=== PATIENT | male | born 1975 | race Caucasian/White ===

== ENCOUNTER 2024-09-21 22:26 | Inpatient (IN) | payer BC ==
[~2024-09-21] VITALS: Ht 185.4 cm; Wt 170.8 kg
--- NOTE | 2024-09-21 23:07 | ERN ---
General Chief Complaint: Abdominal Pain Stated Complaint: C/O RUQ PAIN RADIATING TO BACK X 5 HRS Time Seen by MD: 22:37 History of Present Illness Initial Comments Mr. Beverly is a 49-year-old male with significant past medical history of seizures who comes in today with a right upper quadrant abdominal pain radiating posteriorly to his back. Patient reports the pain began approximately began 5-6 hours prior to arrival and began occurring intermittently over the last few weeks for unspecified duration. The pain is described as sharp, rated a 7-1/2 to 8/10. Patient states that the pain is exacerbated by inspiration. He denies fever, nausea, vomiting jaundice change in bowel movements Allergies: Coded Allergies: No Known Allergies (Unverified Allergy, Unknown, 09/21/24) Past Medical History Past Medical History: Seizure Medical History Other: HX OF EPILEPSY Past Surgical History: None ROS Dictation Constitutional: Negative for fever,chills, and weight loss Eyes: Negative for injury, pain,redness, and discharge ENT: Negative for injury,pain or swelling Cardiovascular: Negative for chest pain, palpitations, and edema Respiratory: Negative for shortness of breath, cough, and wheezing, Abdomen/GI: Positive for right upper quadrant back pain Back: Negative for injury and pain : Negative for injury, bleeding and discharge MS/Extremity: Negative for injury and deformity Skin: Negative for rash, and discoloration Neuro: Negative for headache, weakness, numbness, tingling, and seizure Psych: Negative for suicide ideation, homicidal ideation, and hallucinations Physical Exam Physical Exam Dictation General: awake, alert, NAD Head/Face: Normocephalic, atraumatic Eyes: PERRL, EOMI, vision at baseline ENT: oral cavity clear, TMs clear, no signs of infection Neck: Trachea midline, supple, no nuchal rigidity Cardiovascular: RRR, normal S1/S2, No MRGs, no JVD Respiratory: CTAB, no respiratory distress, No rales or wheezes Abdomen: Pain with palpation in the right upper quadrant Skin: Warm, dry, normal turgor, no rash MS/Extremity: Pulses equal, no cyanosis, neurovascular intact, FROM Neuro: COAx4, GCS 15, strength 5/5, CN 2-12 intact, normal cerebellar exam, normal gait, Psych: Normal behavior, mood, and affect normal Results Laboratory and Microbiology Lab and Micro Result Laboratory Tests Test 09/21/24 23:03 White Blood Count 6.7 K/uL (4.8-10.8) Red Blood Count 4.85 MIL/uL (4.50-6.20) Hemoglobin 15.3 g/dL (14.0-18.0) Hematocrit 45.3 % (42-54) Mean Corpuscular Volume 93.4 fL (79-99) Mean Corpuscular Hemoglobin 31.5 pg (27.0-33.0) Mean Corpuscular Hemoglobin Concent 33.8 g/dL (32.0-36.0) Red Cell Distribution Width 13.4 % (11.0-15.5) Platelet Count 142 K/uL (130-400) Mean Platelet Volume 12.2 fL (7.5-10.5) H Immature Granulocyte % (Auto) 0.7 % (0-1) Neutrophils (%) (Auto) 66.7 % (40.0-77.0) Lymphocytes (%) (Auto) 20.5 % (21.0-51.0) L Monocytes (%) (Auto) 7.3 % (3.0-13.0) Eosinophils (%) (Auto) 4.5 % (0.0-8.0) Basophils (%) (Auto) 0.3 % (0.0-5.0) Neutrophils # (Auto) 4.5 K/uL (1.8-7.7) Lymphocytes # (Auto) 1.4 K/uL (1.0-4.8) Monocytes # (Auto) 0.5 K/uL (0.1-1.0) Eosinophils # (Auto) 0.30 K/uL (0.00-0.70) Basophils # (Auto) 0.02 K/uL (0.00-0.20) Absolute Immature Granulocyte (auto 0.05 K/uL (0-1) Nucleated Red Blood Cells 0.0 % (0.0-0.19) Sodium Level 141 mmol/L (136-145) Potassium Level 4.7 mmol/L (3.5-5.1) Chloride Level 106 mmol/L (101-111) Carbon Dioxide Level 28 mmol/L (21-32) Blood Urea Nitrogen 22 mg/dL (7-18) H Creatinine 1.1 mg/dL (0.5-1.3) Glomerular Filtration Rate Calc 82 mL/min (>90) Random Glucose 94 mg/dL (70-105) Total Calcium 8.7 mg/dL (8.5-10.1) Total Bilirubin 0.5 mg/dL (0.2-1.0) Aspartate Amino Transf (AST/SGOT) 26 U/L (10-37) Alanine Aminotransferase (ALT/SGPT) 24 U/L (12-78) Alkaline Phosphatase 71 U/L (50-136) Total Creatine Kinase 115 U/L (21-232) Total Protein 6.7 g/dL (6.0-8.3) Albumin 3.4 g/dL (3.5-5.0) L Amylase Level 30 U/L (25-115) Lipase 36 U/L (16-77) MDM Patient's ultrasound shows acute cholecystitis. General surgery has been consulted and recommends admission. We will admit to hospitalist. MDM: Differential diagnosis: Acute cholecystitis Rationale: Tests considered and ordered secondary to shared decision making include: labs, ECG and radiology Previous outside records reviewed: Old ER visits. Risk of complication and/or morbidity or mortality of patient management: None Medications-Per medication reconciliation Need for hospitalization: Patient does meet criteria for hospitalization. Need for emergency major/minor surgery: No There are no social concerns with this patient. Prescription drug management Prescriptions will include symptomatic care Patient's prior external medical records from other ER visits were reviewed by me as indicated. Prior testing and results from previous visits were reviewed. Prior tests were taken into account with medical decision making and resource utilization, independent historian/historians were used to obtain complete medical history. I independently interpreted the test that were performed, results were reviewed by me and considered findings on radiology if ordered. Medical management and examination interpretation discussions were had by me with other qualified healthcare professionals as indicated for the patient's care. ED Course Orders Procedure Category Date Status Time Cbc With Differential LAB 09/21/24 Complete 23:02 Comprehensive LAB 09/21/24 Complete Metabolic Panel 23:02 Amylase LAB 09/21/24 Complete 23:02 Urinalysis Profile LAB 09/21/24 Logged 23:02 Us Abdominal Ruq\Ltd US 09/21/24 Resulted 23:02 Lactated Ringers PHA 09/21/24 Complete 1000ml (Lactated 23:30 Morphine 4mg Syg PHA 09/21/24 Complete (Morphine 4mg Syg) 23:30 Ondansetron 4mg Inj PHA 09/21/24 Complete (Zofran 4mg Inj) 23:30 Lidocaine Hcl 2% PHA 09/21/24 Complete Viscous (Lidocaine Hcl 23:30 Mag/Alum/Simeth 30ml PHA 09/21/24 Complete (Maalox Plus 30ml) 23:30 Dicyclomine Hcl PHA 09/21/24 Complete (Bentyl 10mg/5ml 23:30 Creatine Kinase, Total LAB 09/21/24 Complete 23:02 Chest 1vw RAD 09/21/24 Resulted 23:02 Lipase LAB 09/21/24 Complete 23:02 Zosyn 3.375gm+Ns 50ml PHA 09/22/24 Complete (Zosyn 3.375gm+Ns 01:00 Current Medications Medications (Trade) Dose Ordered Sig/Padmini Route PRN Reason Start Time Stop Time Status Last Admin Dose Admin Al Hydroxide/Mg Hydroxide (MAALox PLUS 30ML) 30 ml ONCE ONCE PO 09/21/24 23:30 09/21/24 23:31 DC 09/21/24 23:18 Dicyclomine HCl (Bentyl 10mg/5ml Syrup) 10 mg ONCE ONCE PO 09/21/24 23:30 09/21/24 23:31 DC 09/21/24 23:19 Lactated Ringer's 1,000 ml @ 0 mls/hr ONCE ONCE IV 09/21/24 23:30 09/21/24 23:31 DC 09/21/24 23:18 Lidocaine HCl (Lidocaine HCl 2% Viscous) 10 ml ONCE ONCE PO 09/21/24 23:30 09/21/24 23:31 DC 09/21/24 23:19 Morphine Sulfate (morPHINE 4MG SYG) 4 mg ONCE ONCE IVP 09/21/24 23:30 09/21/24 23:31 DC 09/21/24 23:19 Ondansetron HCl (zoFRAN 4MG INJ) 4 mg ONCE ONCE IVP 09/21/24 23:30 09/21/24 23:31 DC 09/21/24 23:19 Piperacillin Sod/ Tazobactam Sod (Zosyn 3.375gm+NS 50ml) 3.375 gm ONCE ONCE IV 09/22/24 01:00 09/22/24 01:01 DC 09/22/24 01:04 Vital Signs Date Time Temp Pulse Resp B/P (MAP) Pulse Ox O2 Delivery O2 Flow Rate FiO2 09/21/24 23:08 98.4 56 18 135/65 99 Room Air* 0 21 09/21/24 22:28 98.4 53 20 158/81 98 Room Air DX & DISP Disposition: Inpatient Departure Impression: Primary Impression: Acute cholecystitis Critical Time: 30 minutes Condition: Stable Referrals: SELF,REFERRAL (PCP) LAKISHA MERAZ MD Sep 21, 2024 23:07
[2024-09-21] MEDS: MAG/ALUM/SIMETH 30 ML UDCUP PO ONE (23:18)
[2024-09-21] MEDS: LACTATED RINGERS 1000ML 1,000 ML IV ONE (23:18)
[2024-09-21] MEDS: LIDOCAINE HCL 2% VISCOUS 15 ML UDCUP PO ONE (23:19)
[2024-09-21] MEDS: DICYCLOMINE HCL 10 MG/5 ML ML PO ONE (23:19)
[2024-09-21 23:25] LABS: IMMATURE GRANULOCYTE ABSOLUTE 0.05 K/uL (0-1); NUCLEATED RED BLOOD CELLS 0.0 % (0.0-0.19); PLATELET COUNT (AUTO) 142 K/uL (130-400); RED BLOOD CELL COUNT(AUTO) 4.85 MIL/uL (4.50-6.20); RED CELL DISTRIBUTION WIDTH 13.4 % (11.0-15.5); WHITE BLOOD COUNT (AUTO) 6.7 K/uL (4.8-10.8)
[2024-09-21 23:36] LABS: CREATININE 1.1 mg/dL (0.5-1.3); GLOMERULAR FILTR. RATE CALC 82.0 mL/min (>90); GLUCOSE,RANDOM 94.0 mg/dL (70-105); SODIUM SERUM 141.0 mmol/L (136-145); UREA NITROGEN, BLOOD 22.0 mg/dL (7-18)
[2024-09-21 23:41] LABS: ASPARTATE AMINOTRANSFERASE 26.0 U/L (10-37); CREATINE KINASE, TOTAL 115.0 U/L (21-232); TOTAL PROTEIN, SERUM 6.7 g/dL (6.0-8.3)
--- NOTE | 2024-09-22 00:12 | HMCIMG ---
EXAM: CR Chest, 1 view CLINICAL HISTORY: Chest pain. COMPARISON: None provided. FINDINGS: The lungs show no infiltrates or other acute findings. No pleural effusion or pneumothorax. The cardiomediastinal silhouette is within normal limits. No acute osseous abnormality. IMPRESSION: No acute cardiopulmonary process is evident. /[place]
--- NOTE | 2024-09-22 00:49 | HMCIMG ---
EXAM: US Abdomen, Right Upper Quadrant. CLINICAL HISTORY: Abdominal pain. TECHNIQUE: Right upper quadrant sonography performed with image documentation. COMPARISON: None provided. FINDINGS: LIVER: The liver measures 18.3 cm. Increased echogenicity. No mass. GALLBLADDER: The gallbladder is distended, measuring 17 cm long. Multiple calculi. Non mobile calculi at the gallbladder neck measuring 4.2 cm. COMMON BILE DUCT: Within normal limits in size. 5 mm. PANCREAS: The visualized pancreas appears within normal limits. The distal pancreas is obscured by bowel gas. RIGHT KIDNEY: Unremarkable. Normal renal contours. Measures 12.9 x 6.2 x 5.6 c.m. No renal mass or calculus. No hydronephrosis. Limited evaluation due to increased intestinal air and a large body habitus. IMPRESSION: Cholelithiasis with acute cholecystitis. Fatty liver. /Janet
[2024-09-22] MEDS: ZOSYN 3.375GM +NS 50ML IV ONE (01:04)
[2024-09-22] MEDS: LACTATED RINGERS 1000ML 1,000 ML IV SCH (01:54)
--- NOTE | 2024-09-22 02:13 | NUR ---
HOME MEDS NOT AVAIL AT BEDSIDE, INSTRUCTED TO BRING THEM OVER DURING THE DAY
--- NOTE | 2024-09-22 02:39 | HP ---
[facility] HISTORY AND PHYSICAL Date of Service: Sep 22, 2024 Time of Service: 02:38 Attending/supervising physicians: Dr. Hernandez and Dr. Noe Ortega HISTORY OF PRESENT ILLNESS: Mr. Beverly is a 49-year-old male with significant past medical history of seizures who comes in today with a right upper quadrant abdominal pain radiating posteriorly to his back. Patient reported the pain began approximately began 5- 6 hours prior to arrival and began occurring intermittently over the last few weeks for unspecified duration. The pain is described as sharp, rated a 7-1/2 to 8/10. Patient stated that the pain is exacerbated by inspiration. He denied fever, nausea, vomiting jaundice change in bowel movements Abdominal sonogram: Cholelithiasis with acute cholecystitis. Fatty liver. Chest x-ray negative. WBCs WNL. ED provider request patient be admitted with the diagnosis of a acute cholecystitis. I assessed the patient at bedside in room number ER 3. The patient sleeping, appeared comfortable, breathing was even, unlabored, in no distress. I informed patient and significant other at bedside of labs, diagnostics, and plan of care. They verbalized understanding and are in agreement with the plan. Plan and assessment are listed below. REVIEW OF SYSTEMS 12-point ROS reviewed with the patient. All pertinent positives mentioned above. Otherwise negative, noncontributory, nonpertinent. PAST MEDICAL HISTORY: As mentioned above PAST SURGICAL HISTORY: None PAST SOCIAL HISTORY: Denied alcohol, tobacco, illicit drug use FAMILY HISTORY: Noncontributory Coded Allergies: No Known Allergies (Unverified Allergy, Unknown, 09/21/24) PHYSICAL EXAM GENERAL APPEARANCE: The patient is awake, alert, and oriented, in no acute cardiopulmonary distress. NEUROLOGICAL: Cranial nerves II-XII grossly intact. Motor is 5/5 in bilateral upper and lower extremities proximal to distal. No sensory deficits. HEENT: Face is symmetric. Pupils are equal and reactive. Extraocular movements are intact. NECK: Supple. No JVD. No thyromegaly. No submental, submandibular, pre-/postauricular, occipital or supraclavicular lymphadenopathy. CHEST: Normal chest expansion. No Telemetry. LUNGS: Absence of any rales, rhonchi or any wheezing. CARDIOVASCULAR: Regular. S1 and S2 normal. No appreciable rubs, murmurs or gallops. ABDOMEN: Obese. Soft, nontender, and nondistended. There is no rebound, voluntary guarding, or rigidity. : Deferred. No Dhillon. EXTREMITIES: Non-edematous and not cyanotic. No clubbing. Good capillary refill. SKIN: No skin breakdown. Vital Sign (Last 24 Hours) 09/21/24 23:08 Temp 98.4 Pulse 56 Resp 18 B/P (MAP) 135/65 Pulse Ox 99 O2 Delivery Room Air* O2 Flow Rate 0 FiO2 21 LABS: Laboratory: Test 09/21/24 23:03 Range/Units White Blood Count 6.7 4.8-10.8 K/uL Red Blood Count 4.85 4.50-6.20 MIL/uL Hemoglobin 15.3 14.0-18.0 g/dL Hematocrit 45.3 42-54 % Mean Corpuscular Volume 93.4 79-99 fL Mean Corpuscular Hemoglobin 31.5 27.0-33.0 pg Mean Corpuscular Hemoglobin Concent 33.8 32.0-36.0 g/dL Red Cell Distribution Width 13.4 11.0-15.5 % Platelet Count 142 130-400 K/uL Mean Platelet Volume 12.2 H 7.5-10.5 fL Immature Granulocyte % (Auto) 0.7 0-1 % Neutrophils (%) (Auto) 66.7 40.0-77.0 % Lymphocytes (%) (Auto) 20.5 L 21.0-51.0 % Monocytes (%) (Auto) 7.3 3.0-13.0 % Eosinophils (%) (Auto) 4.5 0.0-8.0 % Basophils (%) (Auto) 0.3 0.0-5.0 % Neutrophils # (Auto) 4.5 1.8-7.7 K/uL Lymphocytes # (Auto) 1.4 1.0-4.8 K/uL Monocytes # (Auto) 0.5 0.1-1.0 K/uL Eosinophils # (Auto) 0.30 0.00-0.70 K/uL Basophils # (Auto) 0.02 0.00-0.20 K/uL Absolute Immature Granulocyte (auto 0.05 0-1 K/uL Nucleated Red Blood Cells 0.0 0.0-0.19 % Sodium Level 141 136-145 mmol/L Potassium Level 4.7 3.5-5.1 mmol/L Chloride Level 106 101-111 mmol/L Carbon Dioxide Level 28 21-32 mmol/L Blood Urea Nitrogen 22 H 7-18 mg/dL Creatinine 1.1 0.5-1.3 mg/dL Glomerular Filtration Rate Calc 82 >90 mL/min Random Glucose 94 70-105 mg/dL Total Calcium 8.7 8.5-10.1 mg/dL Total Bilirubin 0.5 0.2-1.0 mg/dL Aspartate Amino Transf (AST/SGOT) 26 10-37 U/L Alanine Aminotransferase (ALT/SGPT) 24 12-78 U/L Alkaline Phosphatase 71 50-136 U/L Total Creatine Kinase 115 21-232 U/L Total Protein 6.7 6.0-8.3 g/dL Albumin 3.4 L 3.5-5.0 g/dL Amylase Level 30 25-115 U/L Lipase 36 16-77 U/L Current Medications Medications (Trade) Dose Ordered Sig/Padmini Route PRN Reason Start Time Stop Time Status Last Admin Dose Admin Hydromorphone HCl (DiLAUDid 0.5MG INJ) 0.5 mg Q4H PRN IVP SEVERE PAIN (7-10) 09/22/24 01:30 09/27/24 01:29 Ketorolac Tromethamine (toRADol) 30 mg Q6H PRN IVP MODERATE PAIN (4-6) 09/22/24 01:30 09/27/24 01:29 Lactated Ringer's 1,000 ml @ 100 mls/hr Q10H IV 09/22/24 01:30 10/22/24 01:29 09/22/24 01:54 100 MLS/HR DIAGNOSTICS / RADIOLOGY: [ ] ASSESSMENT: Acute cholecystitis, POA Acute abdominal pain, POA Acute on chronic kidney disease, GFR 82 (last GFR on 11/29/15 was 59) Hypoalbuminemia History of seizures Morbid obese, BMI 49.6 PLAN: Admit patient to medical floor. NPO for now. Start LR at 100 mL an hour. Consult general surgeon. Continue Zosyn 3.375 IV Q8 hours. P.r.n. medications for: Pain management, nausea, vomiting, constipation, hypertension. Glucometer checks a.c. and HS as needed with insulin regular sliding scale coverage as needed. Blood pressure checks every4 hours and as needed. Reconcile home medications once available. Monitor renal and liver function. Monitor electrolytes and treat accordingly.. A.m. labs. GI and DVT prophylaxis. Further orders upon hospitalization course. ADVANCED CARE PLANNING 1. Which of the following were discussed? Hospice Care - No Therapeutic options - Yes Advance Directives - Yes Other discussions - 2. Discussed with who? The patient 3. Voluntary nature of this service was explained to the patient? Yes 4. Amount of time spent - __ Over 35 minutes 5. Reviewed by Physician? (if this service was performed by [facility]) Yes ATTESTATION BY PHYSICIAN I have seen and examined the patient. I reviewed the documentation, medical decision making, and treatment plan as noted by the mid-level provider above. I agree with the findings and plan of care. ZEINAB BROWN [facility] Sep 22, 2024 02:39
[2024-09-22] MEDS ORDERED: DEXTROSE 50%-WATER 50 ML DISP.SYRIN IV PRN (04:30)
[2024-09-22] MEDS ORDERED: GLUCAGON 1MG KIT 1 MG ML IM PRN (04:30)
[2024-09-22] MEDS ORDERED: LACTULOSE 20 GM/30 ML UDCUP PO PRN (04:30)
--- NOTE | 2024-09-22 05:15 | NUR ---
STILL AW URINE SAMPLE FROM PATIENT, NOT REALLY KEEN OF DOING I/O CATH, PER PT WILL TRY TO GO TO THE TOILET
--- NOTE | 2024-09-22 06:32 | NUR ---
REPORT GIVEN TO GRICELDA,
--- NOTE | 2024-09-22 06:34 | NUR ---
TRANSFER TO FLOOR AFTER 7.00 PER LUMITE INJECTOR KAMILAH
--- NOTE | 2024-09-22 07:09 | EKG ---
[facility] Test Date: 2024-09-21 Test Time: 22:55:12 Pat Name: NESS BARBOUR Department: EDHIP Room: 330 Gender: M Food Checker: GUME : 1975 Requested By: ESTELLA CHISHOLM Order Number: [id number] Reading MD: Ronnie Oneill Measurements Intervals [place] Rate: 54 P: 59 CO: 160 QRS: 26 QRSD: 104 T: 29 QT: 448 QTc: 423 Interpretive Statements Sinus rhythm No previous ECG available for comparison Electronically Signed On 09-22-2024 15:02:05 CDT by Ronnie Oneill Please click the below link to view image of tracing.
[2024-09-22 07:51] VITALS: O2SAT 98
[2024-09-22 07:58] VITALS: BP 125/75; PULSE 54; TEMP 97.8
[2024-09-22 08:00] VITALS: BP 160/72; PULSE 77; RESP 20; TEMP 98
[2024-09-22] MEDS: ZOSYN 3.375GM +NS 50ML IVPB SCH (08:43)
[2024-09-22] MEDS ORDERED: 0.9%NACL 50ML IV SCH (09:00)
--- NOTE | 2024-09-22 09:33 | CONS ---
GENERAL SURGERY CONSULTATION NOTE DATE OF CONSULTATION: Sep 22, 2024 TIME OF CONSULTATION: 09:31 CONSULTING SERVICE: Jodi Ferris MD REQUESTING PHYSICAIN: [ ] REASON FOR CONSULTATION: [ ] Abdominal pain Rule out acute cholecystitis HISTORY OF PRESENT ILLNESS: [ ] 49-year-old male who presented with abdominal pain Pain had been on and off for few years now This particular episode started two days ago No nausea or vomiting- Diarrhea diarrhea PAST MEDICAL HISTORY: [ ] Epilepsy PAST SURGICAL HISTORY: [ ] Non FAMILY HISTORY: [ ] No family history of hypertension or diabetes SOCIAL HISTORY: [ ] No smoking No alcohol Current Medications Medications (Trade) Dose Ordered Sig/Padmini Route Start Time Stop Time Status Last Admin Dose Admin Insulin Human Regular (humuLIN R 100 UNIT/ML 3ML) INSULIN SLIDING SCAL... ACHS SQ 09/22/24 07:30 10/22/24 07:29 Lactated Ringer's 1,000 ml @ 100 mls/hr Q10H IV 09/22/24 01:30 10/22/24 01:29 09/22/24 01:54 100 MLS/HR Piperacillin Sod/ Tazobactam Sod (Zosyn 3.375gm+NS 50ml) 3.375 gm Q8H IVPB 09/22/24 09:00 10/02/24 08:59 09/22/24 08:43 3.375 GM Sodium Chloride (NS 50ml) 50 ml AD IV 09/22/24 09:00 09/22/24 07:38 DC Allergies: Coded Allergies: No Known Allergies (Unverified Allergy, Unknown, 09/21/24) REVIEW OF SYSTEMS: PAINTINGS CONSERVATOR: [Denies headaches or blurring of vision.] RESP: [No cough, chest pain or SOB.] CVS: [No palpitaions.] GI: [abdominal pain no nausea or vomiting, no diarrhea or constipation.] NATHAN: [No dysuria or hematuria.] Musculoskeletal: [No swelling or joint pain.] BACK: [No pain or swelling.] All other systems are reviewed and essentially negative pertinent positives in HPI. PHYSICAL EXAMINATION: GENERAL: [Patient is lying comfortably in bed, not in any obvious distress.] HEAD: [Normal with no signs of head trauma.] EYES: [Not pale not jaundiced afebrile to touch.] ENT: [ Normal.] NECK: [Supple,no tenderness,no lymphadenopathy,no masses,no thyromegaly ,no b ruits, no JVD.] LUNGS: [Clear breath sounds bilaterally. No wheezes, rales, or rhonchi.] HEART: [Regular rate and rhythm. Normal S1 and S2, without murmurs, rub or gallop.] VASC: [No edema. Peripheral pulses normal and equal in all extremities.] ABD: [Bowel sounds present,soft, nontender morbidly obese : [Normal, no suprapubic tenderness.] LYMPH: [No lymphadenopathy noted.] EXT: [ Warm soft, non tender.] SKIN: [ No rashes or lesions.] NEURO: [ Awake Alert and oriented x3.] Vital Signs (last 8hr) Date Time Temp Pulse Resp B/P (MAP) Pulse Ox O2 Delivery O2 Flow Rate FiO2 09/22/24 07:58 97.9 54 125/75 97 Room Air 21 09/22/24 07:51 98 Room Air* 0 21 09/22/24 05:52 98.4 75 20 132/62 98 Room Air* 0 21 09/22/24 03:00 98.4 72 18 125/65 98 Room Air* 0 21 LABORATORY: [ ] Hematology Labs: Test 09/21/24 23:03 Range/Units White Blood Count 6.7 4.8-10.8 K/uL Red Blood Count 4.85 4.50-6.20 MIL/uL Hemoglobin 15.3 14.0-18.0 g/dL Hematocrit 45.3 42-54 % Mean Corpuscular Volume 93.4 79-99 fL Mean Corpuscular Hemoglobin 31.5 27.0-33.0 pg Mean Corpuscular Hemoglobin Concent 33.8 32.0-36.0 g/dL Red Cell Distribution Width 13.4 11.0-15.5 % Platelet Count 142 130-400 K/uL Mean Platelet Volume 12.2 H 7.5-10.5 fL Immature Granulocyte % (Auto) 0.7 0-1 % Neutrophils (%) (Auto) 66.7 40.0-77.0 % Lymphocytes (%) (Auto) 20.5 L 21.0-51.0 % Monocytes (%) (Auto) 7.3 3.0-13.0 % Eosinophils (%) (Auto) 4.5 0.0-8.0 % Basophils (%) (Auto) 0.3 0.0-5.0 % Neutrophils # (Auto) 4.5 1.8-7.7 K/uL Lymphocytes # (Auto) 1.4 1.0-4.8 K/uL Monocytes # (Auto) 0.5 0.1-1.0 K/uL Eosinophils # (Auto) 0.30 0.00-0.70 K/uL Basophils # (Auto) 0.02 0.00-0.20 K/uL Absolute Immature Granulocyte (auto 0.05 0-1 K/uL Nucleated Red Blood Cells 0.0 0.0-0.19 % Chemistry Labs: Test 09/21/24 23:03 Range/Units Sodium Level 141 136-145 mmol/L Potassium Level 4.7 3.5-5.1 mmol/L Chloride Level 106 101-111 mmol/L Carbon Dioxide Level 28 21-32 mmol/L Blood Urea Nitrogen 22 H 7-18 mg/dL Creatinine 1.1 0.5-1.3 mg/dL Glomerular Filtration Rate Calc 82 >90 mL/min Random Glucose 94 70-105 mg/dL Total Calcium 8.7 8.5-10.1 mg/dL Total Bilirubin 0.5 0.2-1.0 mg/dL Aspartate Amino Transf (AST/SGOT) 26 10-37 U/L Alanine Aminotransferase (ALT/SGPT) 24 12-78 U/L Alkaline Phosphatase 71 50-136 U/L Total Creatine Kinase 115 21-232 U/L Total Protein 6.7 6.0-8.3 g/dL Albumin 3.4 L 3.5-5.0 g/dL Amylase Level 30 25-115 U/L Lipase 36 16-77 U/L DIAGNOSTICS / RADIOLOGY: [Copy/Paste Echos/Imaging Report here] ASSESSMENT: [] Morbid super obese Abdominal pain Cholelithiasis Biliary colic Rule out acute cholecystitis PLAN: [] /IVF/IV ANTIOBIOTICS HIDA scan for further evaluation CT abdomen and pelvis with oral and IV contrast for further evaluation Surgery needed neurology clearance JODI FERRIS MD Sep 22, 2024 09:33
--- NOTE | 2024-09-22 09:55 | PN ---
[facility] PROGRESS NOTE Date of Service: Sep 22, 2024 Time of Service: 09:53 SUBJECTIVE: [ ] This is a 49-year-old male presents in ED with intractable abdominal pain right upper quad ER workup was consistent acute cholecystitis. Was seen by general surgeon order HIDA scan for further evaluation, imaging CT abdomen pelvis with oral and IV contrast for further evaluation. Surgery needed neurology clearance REVIEW OF SYSTEMS 12-point ROS reviewed with the patient. All pertinent positives mentioned above. Otherwise negative, noncontributory, nonpertinent. PHYSICAL EXAM GENERAL APPEARANCE: The patient is awake, alert, and oriented, in no acute cardiopulmonary distress. NEUROLOGICAL: Cranial nerves II-XII grossly intact. Motor is 5/5 in bilateral upper and lower extremities proximal to distal. No sensory deficits. HEENT: Face is symmetric. Pupils are equal and reactive. Extraocular movements are intact. NECK: Supple. No JVD. No thyromegaly. No submental, submandibular, pre- /postauricular, occipital or supraclavicular lymphadenopathy. CHEST: Normal chest expansion. No Telemetry. LUNGS: Absence of any rales, rhonchi or any wheezing. CARDIOVASCULAR: Regular. S1 and S2 normal. No appreciable rubs, murmurs or gallops. ABDOMEN: Obese. Soft, nontender, and nondistended. There is no rebound, voluntary guarding, or rigidity. : Deferred. No Dhillon. EXTREMITIES: Non-edematous and not cyanotic. No clubbing. Good capillary refill. SKIN: No skin breakdown. Vital Signs (last 8hr) Date Time Temp Pulse Resp B/P (MAP) Pulse Ox O2 Delivery O2 Flow Rate FiO2 09/22/24 07:58 97.9 54 125/75 97 Room Air 21 09/22/24 07:51 98 Room Air* 0 21 09/22/24 05:52 98.4 75 20 132/62 98 Room Air* 0 21 09/22/24 03:00 98.4 72 18 125/65 98 Room Air* 0 21 LABS: Laboratory: Test 09/21/24 23:03 Range/Units White Blood Count 6.7 4.8-10.8 K/uL Red Blood Count 4.85 4.50-6.20 MIL/uL Hemoglobin 15.3 14.0-18.0 g/dL Hematocrit 45.3 42-54 % Mean Corpuscular Volume 93.4 79-99 fL Mean Corpuscular Hemoglobin 31.5 27.0-33.0 pg Mean Corpuscular Hemoglobin Concent 33.8 32.0-36.0 g/dL Red Cell Distribution Width 13.4 11.0-15.5 % Platelet Count 142 130-400 K/uL Mean Platelet Volume 12.2 H 7.5-10.5 fL Immature Granulocyte % (Auto) 0.7 0-1 % Neutrophils (%) (Auto) 66.7 40.0-77.0 % Lymphocytes (%) (Auto) 20.5 L 21.0-51.0 % Monocytes (%) (Auto) 7.3 3.0-13.0 % Eosinophils (%) (Auto) 4.5 0.0-8.0 % Basophils (%) (Auto) 0.3 0.0-5.0 % Neutrophils # (Auto) 4.5 1.8-7.7 K/uL Lymphocytes # (Auto) 1.4 1.0-4.8 K/uL Monocytes # (Auto) 0.5 0.1-1.0 K/uL Eosinophils # (Auto) 0.30 0.00-0.70 K/uL Basophils # (Auto) 0.02 0.00-0.20 K/uL Absolute Immature Granulocyte (auto 0.05 0-1 K/uL Nucleated Red Blood Cells 0.0 0.0-0.19 % Sodium Level 141 136-145 mmol/L Potassium Level 4.7 3.5-5.1 mmol/L Chloride Level 106 101-111 mmol/L Carbon Dioxide Level 28 21-32 mmol/L Blood Urea Nitrogen 22 H 7-18 mg/dL Creatinine 1.1 0.5-1.3 mg/dL Glomerular Filtration Rate Calc 82 >90 mL/min Random Glucose 94 70-105 mg/dL Total Calcium 8.7 8.5-10.1 mg/dL Total Bilirubin 0.5 0.2-1.0 mg/dL Aspartate Amino Transf (AST/SGOT) 26 10-37 U/L Alanine Aminotransferase (ALT/SGPT) 24 12-78 U/L Alkaline Phosphatase 71 50-136 U/L Total Creatine Kinase 115 21-232 U/L Total Protein 6.7 6.0-8.3 g/dL Albumin 3.4 L 3.5-5.0 g/dL Amylase Level 30 25-115 U/L Lipase 36 16-77 U/L Current Medications Medications (Trade) Dose Ordered Sig/Padmini Route PRN Reason Start Time Stop Time Status Last Admin Dose Admin Acetaminophen (TYLenol 325MG TAB) 650 mg Q6H PRN PO FEVER/MILD PAIN LEVEL 1-3 09/22/24 04:30 10/22/24 04:29 Acetaminophen (TYLenol 650MG SUPPOSITORY) 650 mg Q6H PRN RC FEVER / MILD PAIN 1-3 IF NPO 09/22/24 04:30 10/22/24 04:29 Dextrose (D50w) 50 ml AD PRN IV HYPOGLYCEMIA PROTOCOL 09/22/24 04:30 10/22/24 04:29 Docusate Sodium (COLace 100MG CAP) 100 mg BID PRN PO CONSTIPATION 09/22/24 04:30 10/22/24 04:29 Glucagon (Glucagon 1mg Kit) 1 mg AD PRN IM HYPOGLYCEMIA PROTOCOL 09/22/24 04:30 10/22/24 04:29 Hydromorphone HCl (DiLAUDid 0.5MG INJ) 0.5 mg Q4H PRN IVP SEVERE PAIN (7-10) 09/22/24 01:30 09/27/24 01:29 Insulin Human Regular (humuLIN R 100 UNIT/ML 3ML) INSULIN SLIDING SCAL... ACHS SQ 09/22/24 07:30 10/22/24 07:29 Ketorolac Tromethamine (toRADol) 30 mg Q6H PRN IVP MODERATE PAIN (4-6) 09/22/24 01:30 09/27/24 01:29 Labetalol HCl (TRANdate 20MG SYG) 10 mg Q2H PRN IV SBP GREATER THAN 180 09/22/24 04:30 10/22/24 04:29 Lactated Ringer's 1,000 ml @ 100 mls/hr Q10H IV 09/22/24 01:30 10/22/24 01:29 09/22/24 01:54 100 MLS/HR Lactulose (Constulose 20gm/ 30ml Udcup) 20 gm Q6H PRN PO CONSTIPATION 09/22/24 04:30 10/22/24 04:29 Magnesium Sulfate 50 ml @ 0 mls/hr PROTOCOL PRN IV MAGNESIUM PROTOCOL 09/22/24 04:30 10/22/24 04:29 Ondansetron HCl (zoFRAN 4MG INJ) 4 mg Q6H PRN IVP NAUSEA/VOMITING 09/22/24 04:30 10/22/24 04:29 Piperacillin Sod/ Tazobactam Sod (Zosyn 3.375gm+NS 50ml) 3.375 gm Q8H IVPB 09/22/24 09:00 10/02/24 08:59 09/22/24 08:43 3.375 GM Potassium Chloride 100 ml @ 100 mls/hr AD PRN IV POTASSIUM PROTOCOL 09/22/24 04:30 10/22/24 04:29 Potassium Chloride (K-Dur/Klor-Con 20meq) 20 meq AD PRN PO POTASSIUM PROTOCOL 09/22/24 04:30 10/22/24 04:29 Potassium Chloride (KCl 10% Elixir 20meq/15ml) 20 meq AD PRN PO POTASSIUM PROTOCOL 09/22/24 04:30 10/22/24 04:29 Sodium Chloride (NS 50ml) 50 ml AD IV 09/22/24 09:00 09/22/24 07:38 DC Temazepam (restORIL 15 MG CAP) 15 mg HS PRN PO INSOMNIA/SLEEP 09/22/24 04:30 10/22/24 04:29 DIAGNOSTICS / RADIOLOGY: [ ] ASSESSMENT: Acute cholecystitis, POA Acute abdominal pain, POA Acute on chronic kidney disease, GFR 82 (last GFR on 11/29/15 was 59) Hypoalbuminemia History of seizures Morbid obese, BMI 49.6 PLAN: Admit patient to medical floor. NPO for now. IVF's: LR at 100 mL an hour. Consult general surgeon. neurologist Antibiotic: Continue Zosyn 3.375 IV Q8 hours. Imaging: HIDA scan and CT abd/pelvis today will follow results Surgery: Possible Lap paxton will need Neurologist clearance P.r.n. medications for: Pain management, nausea, vomiting, constipation, hypertension. Glucometer checks a.c. and HS as needed with insulin regular sliding scale coverage as needed. Blood pressure checks every4 hours and as needed. Reconcile home medications once available. Keppra will be adjusted change to IV route while NPO Monitor renal and liver function. Monitor electrolytes and treat accordingly.. A.m. labs. GI and DVT prophylaxis. Further orders upon hospitalization course. ATTESTATION BY PHYSICIAN I have seen and examined the patient. I reviewed the documentation, medical decision making, and treatment plan as noted by the mid-level provider above. I agree with the findings and plan of care. Abida Ortega MD, ELIZABETH NP Sep 22, 2024 09:55
[2024-09-22 11:25] VITALS: BP 131/74; PULSE 57; RESP 21; TEMP 97.5
[2024-09-22] MEDS ORDERED: DIVA500T52 PO (13:45)
[2024-09-22] MEDS ORDERED: LEVE750T85 PO ×2 (13:52)
[2024-09-22] MEDS ORDERED: ZONI25CA14 PO (13:52)
[2024-09-22] MEDS ORDERED: PHARMACY COMMUNICATION MISC SCH (14:00)
--- NOTE | 2024-09-22 14:09 | NUR ---
DCP: HOME Pt currently lives with kevin Beverly [phone]. Pt does not have any insecurities with food, intermediate, and/or utilities. Pt does not have any DME, home health, or provider services. Pt is able to complete ADLs independently. PCP is Dr Johnathan Blackburn and uses [facility] for any RX needs. At NE pt will want to go home and family can assist with transportation. Addendum: 09/22/24 at 1412 by NAIDA PHELPS SS Amended: Links added.
[2024-09-22] MEDS ORDERED: COMPOUND IV MISC 1 EACH IVSOLN MISC PRN (14:30)
--- NOTE | 2024-09-22 16:33 | CONS ---
CONSULTATION NOTE Date of Service: Sep 22, 2024 Reason for Consultation: Eval of epilepsy management Requesting Physician: Dr Perla HISTORY OF PRESENT ILLNESS: Mr. Angel Beverly, a 49-year-old right-handed male with a history of epilepsy, presents with right upper quadrant pain. The patient has been experiencing this pain for some time, typically occurring at night and lasting for a couple of hours. Yesterday, the pain began around 4:30-5:00 PM and progressively worsened throughout the evening. By 9:00 PM, the pain had become severe enough to prompt a visit to the hospital. Associated symptoms include diarrhea, or more accurately described as loose stools, which the patient has been experiencing for a while in conjunction with the abdominal pain. The patient denies nausea or vomiting. Upon arrival at the hospital, the patient was diagnosed with cholecystitis by Dr. Perla, and there is mention of cholelithiasis (gallstones) by the nurse practitioner who evaluated him in the ER. Regarding the patient's epilepsy, his last major seizure occurred approximately 3 years ago, with some small seizures occurring in between. The most recent small seizure was reported to be about a year ago. The patient is currently on a regimen of valproic acid 1000 mg twice daily, levetiracetam 750 mg in the morning and 1500 mg in the evening, and zonisamide 25 mg twice daily. However, the patient has not taken his anti-epileptic medications since yesterday, putting him at high risk for a rebound seizure. Medical History - Epilepsy, with last major seizure approximately 3 years ago - Small seizures, with the most recent occurring approximately 1 year ago - Recurrent right upper quadrant pain, occurring primarily at night Medications and Supplements - Valproic acid 500 mg sustained release, 2 tablets twice daily - Levetiracetam 750 mg, 1 tablet in the morning, 2 tablets in the evening - Zonisamide 25 mg, 1 capsule twice daily Social History - Living Situation: Lives with a partner Review of Systems Gastrointestinal: Positive for right upper quadrant pain, loose stools. Negative for nausea and vomiting. Neurological: Positive for small seizures within the past year. REVIEW OF SYSTEMS CONSTITUTIONAL: Denies fever, chills, or fatigue. HEAD/FACE: No signs of trauma. EENT: Denies eye pain, blurred vision, double vision, or light sensitivity. RESPIRATORY: Denies shortness of breath, cough, wheezing CARDIOVASCULAR: Denies chest pain, palpitation, syncope GASTROINTESTINAL/ABDOMINAL: abdominal pain and diarrhea. No nausea or vomiting GENITOURINARY: Denies dysuria or hematuria. MUSCULOSKELETAL: Denies joint pain, tenderness, or trauma. INTEGUMENTARY: Denies rash or itchiness NEUROLOGICAL/PSYCH: Denies anxiety, depression, heat or cold intolerance. PAST MEDICAL HISTORY: As above PAST SURGICAL HISTORY: As above PAST SOCIAL HISTORY: None FAMILY HISTORY: None Coded Allergies: No Known Allergies (Unverified Allergy, Unknown, 09/21/24) PHYSICAL EXAM EYES: Anicteric. Pupils equal and reactive. HENT: No oral thrush seen, moist Oral mucosa NECK: Supple, no JVD or thyromegaly. LUNGS: Good air entry. No rales, no rhonchi. CARDIOVASCULAR: S1, S2 regular. No murmur heard. ABDOMEN: Soft, non tender, bowel sounds present, no organomegaly CENTRAL NERVOUS SYSTEM: Awake, alert, oriented x 3. No focal deficits. SKIN: No rashes, no swelling. LYMPHATICS: No peripheral lymphadenopathy MUSCULOSKELETAL: No joint swelling, erythema or tenderness. EXTREMITIES: No cyanosis or clubbing BACK: No deformity, no pressure ulcer. GENITOURINARY: No dysuria or hematuria Vital Sign (Last 24 Hours) 09/22/24 09/22/24 07:51 11:25 Temp 97.5 Pulse 57 Resp 21 B/P (MAP) 131/74 Pulse Ox 99 O2 Delivery Room Air O2 Flow Rate 0 FiO2 21 LABS: Laboratory: Test 09/22/24 12:10 09/21/24 23:03 Range/Units Whole Blood Glucose 90 70-110 MG/DL White Blood Count 6.7 4.8-10.8 K/uL Red Blood Count 4.85 4.50-6.20 MIL/uL Hemoglobin 15.3 14.0-18.0 g/dL Hematocrit 45.3 42-54 % Mean Corpuscular Volume 93.4 79-99 fL Mean Corpuscular Hemoglobin 31.5 27.0-33.0 pg Mean Corpuscular Hemoglobin Concent 33.8 32.0-36.0 g/dL Red Cell Distribution Width 13.4 11.0-15.5 % Platelet Count 142 130-400 K/uL Mean Platelet Volume 12.2 H 7.5-10.5 fL Immature Granulocyte % (Auto) 0.7 0-1 % Neutrophils (%) (Auto) 66.7 40.0-77.0 % Lymphocytes (%) (Auto) 20.5 L 21.0-51.0 % Monocytes (%) (Auto) 7.3 3.0-13.0 % Eosinophils (%) (Auto) 4.5 0.0-8.0 % Basophils (%) (Auto) 0.3 0.0-5.0 % Neutrophils # (Auto) 4.5 1.8-7.7 K/uL Lymphocytes # (Auto) 1.4 1.0-4.8 K/uL Monocytes # (Auto) 0.5 0.1-1.0 K/uL Eosinophils # (Auto) 0.30 0.00-0.70 K/uL Basophils # (Auto) 0.02 0.00-0.20 K/uL Absolute Immature Granulocyte (auto 0.05 0-1 K/uL Nucleated Red Blood Cells 0.0 0.0-0.19 % Sodium Level 141 136-145 mmol/L Potassium Level 4.7 3.5-5.1 mmol/L Chloride Level 106 101-111 mmol/L Carbon Dioxide Level 28 21-32 mmol/L Blood Urea Nitrogen 22 H 7-18 mg/dL Creatinine 1.1 0.5-1.3 mg/dL Glomerular Filtration Rate Calc 82 >90 mL/min Random Glucose 94 70-105 mg/dL Total Calcium 8.7 8.5-10.1 mg/dL Total Bilirubin 0.5 0.2-1.0 mg/dL Aspartate Amino Transf (AST/SGOT) 26 10-37 U/L Alanine Aminotransferase (ALT/SGPT) 24 12-78 U/L Alkaline Phosphatase 71 50-136 U/L Total Creatine Kinase 115 21-232 U/L Total Protein 6.7 6.0-8.3 g/dL Albumin 3.4 L 3.5-5.0 g/dL Amylase Level 30 25-115 U/L Lipase 36 16-77 U/L DIAGNOSTICS / RADIOLOGY: [ ] ASSESSMENT / PLAN: Mr. Angel Beverly, a 49-year-old right-handed male with a history of epilepsy, presents with right upper quadrant pain and loose stools, diagnosed with cholecystitis and cholelithiasis. Cholecystitis with Cholelithiasis Assessment: Mr. Beverly has been experiencing right upper quadrant pain for some time, typically occurring at night and lasting a couple of hours. Yesterday, the pain began around 4:30-5:00 PM and progressively worsened. He also reports loose stools but denies nausea or vomiting. The patient was brought to the hospital, where he was diagnosed with cholecystitis (gallbladder infection) and cholelithiasis (gallstones) by the emergency room team. Surgery has been recommended for treatment. Plan: - Surgical consultation for cholecystectomy - Continue NPO status as directed by surgical team ok to give anti seizure medications oral now. Epilepsy Assessment: Mr. Beverly has a history of epilepsy with his last major seizure occurring approximately 3 years ago. He has experienced minor seizures since then, with the most recent occurring about a year ago. The patient is currently on a regimen of valproic acid, levetiracetam, and zonisamide, which appears to be effectively controlling his seizures. However, he has missed his morning dose of anti-epileptic medications due to hospital admission and NPO status, putting him at risk for breakthrough seizures. Plan: - Administer anti-epileptic medications immediately: - Valproic acid 1000 mg PO BID - Levetiracetam 750 mg PO in the morning, 1500 mg PO in the evening - Zonisamide 25 mg PO BID - Continue current anti-epileptic medication regimen - Adjust evening dose timing to maintain appropriate interval - Monitor for seizure activity - If seizure-free until tomorrow, clear for surgery from neurological standpoint - If seizure occurs, recommend delaying non-emergent surgery by one day - Educate patient and family on importance of medication adherence, especially in the perioperative period Thank you for your consultation. BERNARDA RIZZO MD Sep 22, 2024 16:33
[2024-09-22] MEDS ORDERED: DIATR MEGLU/DIATRIZOATE SODIUM 30 ML BOTTLE ONE (16:41)
[2024-09-22] MEDS ORDERED: IOHEXOL 350 MG/ML 100ML INFUS..BTL IV ONE (18:57)
[2024-09-22 19:04] LABS: APPEARANCE,URINE CLEAR (CLEAR); GLUCOSE, URINE (UA) NEGATIVE (NEGATIVE); LEUKOCYTE ESTERASE ,URINE NEGATIVE Leu/uL (NEGATIVE); NITRATE,URINE NEGATIVE (NEGATIVE); OCCULT BLOOD,URINE NEGATIVE (NEGATIVE)
[2024-09-22 19:05] LABS: ADD UA MICROSCOPIC YES
[2024-09-22 20:00] VITALS: BP 140/67; PULSE 55; RESP 20; TEMP 97.4; O2SAT 96
[2024-09-22] MEDS: LEVETIRACETAM 1,500MG @ 400 MLS/HR(100ml) IV SCH (20:21)
[2024-09-22] MEDS: ZONISAMIDE 25 MG PO SCH (20:27)
[2024-09-23] VITALS (9 sets, daily range): BP systolic 114–129; BP diastolic 57–79; PULSE 54–59; RESP 19–21; TEMP 97.5–98.3; O2SAT 94
[2024-09-23 04:35] LABS: IMMATURE GRANULOCYTE ABSOLUTE 0.03 K/uL (0-1); NUCLEATED RED BLOOD CELLS 0.0 % (0.0-0.19); PLATELET COUNT (AUTO) 119 K/uL (130-400); RED BLOOD CELL COUNT(AUTO) 4.41 MIL/uL (4.50-6.20); RED CELL DISTRIBUTION WIDTH 13.1 % (11.0-15.5); WHITE BLOOD COUNT (AUTO) 5.3 K/uL (4.8-10.8)
[2024-09-23 04:51] LABS: ASPARTATE AMINOTRANSFERASE 18.0 U/L (10-37); CREATININE 1.1 mg/dL (0.5-1.3); GLOMERULAR FILTR. RATE CALC 82.0 mL/min (>90); GLUCOSE,RANDOM 80.0 mg/dL (70-105); PHOSPHORUS 3.3 mg/dL (2.5-4.9); SODIUM SERUM 142.0 mmol/L (136-145); TOTAL PROTEIN, SERUM 6.0 g/dL (6.0-8.3); UREA NITROGEN, BLOOD 13.0 mg/dL (7-18)
--- NOTE | 2024-09-23 05:52 | HMCIMG ---
Examination Hepatobiliary study History RUQ Pain Technique Tc-99m mebrofenin were administered intravenously followed by acquisition of planar images of the abdomen. Findings Following administration of radiotracer, there is prompt appearance of normal hepatic contours, followed by appearance of activity in unremarkable appearing bile ducts. There is nonvisualization of the gallbladder reflecting acute cholecystitis. IMPRESSION: There is nonvisualization of the gallbladder reflecting acute cholecystitis. /Plains
[2024-09-23] MEDS: MAGNESIUM 2GM PREMIX 50ML 50 ML IV PRN (06:11)
--- NOTE | 2024-09-23 07:18 | HMCIMG ---
EXAM: CT Abdomen and Pelvis with oral and IV contrast CLINICAL HISTORY: Acute cholecystitis. TECHNIQUE: Axial computed tomography images of the abdomen and pelvis with oral and intravenous contrast. CONTRAST: with oral and intravenous contrast. COMPARISON: US abdomen study dated September 22, 2024, and HIDA scan study dated September 23, 2024. FINDINGS: LUNG BASES: The lung bases appear clear. No pleural effusions are seen. LIVER: Unremarkable. GALLBLADDER AND BILE DUCTS: The gallbladder is distended and demonstrates multiple calculi with a possible small impacted calculus at the neck. Mild gallbladder wall thickening and enhancement are seen with pericholecystic fat stranding and edema. No biliary ductal dilatation is evident. No radiodense common bile duct calculus. PANCREAS: Unremarkable. SPLEEN: Unremarkable. ADRENAL GLANDS: Unremarkable. KIDNEYS, URETERS, AND BLADDER: The kidneys appear within normal limits. There is no hydronephrosis or hydroureter. No urinary calculi are seen. The urinary bladder is incompletely distended at the time of examination, limiting the evaluation. STOMACH AND BOWEL: Unremarkable appearance of the stomach and bowel. No evidence of bowel obstruction. No evidence suggesting enteritis or colitis. There are multiple colonic diverticula without evidence of diverticulitis. APPENDIX: The appendix is not visualized. PERITONEUM: There is no free fluid, free air or abscess. LYMPH NODES: A few small periportal lymph nodes are seen. REPRODUCTIVE: Unremarkable as visualized. VASCULATURE: No evidence of abdominal aortic aneurysm. BONES: No aggressive-appearing osseous lesion. No acute osseous pathology is evident. Osseous degenerative changes are noted. A small umbilical hernia is seen containing fat without incarceration. IMPRESSION: Findings suggestive of acute calculus cholecystitis. No evidence of dilated bile ducts or common bile duct calculus. Other findings as described above. /Janet
--- NOTE | 2024-09-23 12:52 | PN ---
[facility] PROGRESS NOTE Date of Service: Sep 23, 2024 Time of Service: 12:45 SUBJECTIVE: [ ] This is a 49-year-old male presents in ED with intractable abdominal pain right upper quad ER workup was consistent acute cholecystitis. Was seen by general surgeon order HIDA scan for further evaluation, imaging CT abdomen pelvis with oral and IV contrast for further evaluation. Surgery needed neurology clearance 09/23/[address] abdomen pelvis evidence of acute cholecystitis. No seizures reported overnight review nephrology note in detail if patient is seizure free until tomorrow cleared for surgery. If any seizures activity occurs recommends delay non emergent surgery by one day. Patient is fully awake alert oriented x3. REVIEW OF SYSTEMS 12-point ROS reviewed with the patient. All pertinent positives mentioned above. Otherwise negative, noncontributory, nonpertinent. PHYSICAL EXAM GENERAL APPEARANCE: The patient is awake, alert, and oriented, in no acute cardiopulmonary distress. NEUROLOGICAL: Cranial nerves II-XII grossly intact. Motor is 5/5 in bilateral upper and lower extremities proximal to distal. No sensory deficits. HEENT: Face is symmetric. Pupils are equal and reactive. Extraocular movements are intact. NECK: Supple. No JVD. No thyromegaly. No submental, submandibular, pre-/postau ricular, occipital or supraclavicular lymphadenopathy. CHEST: Normal chest expansion. No Telemetry. LUNGS: Absence of any rales, rhonchi or any wheezing. CARDIOVASCULAR: Regular. S1 and S2 normal. No appreciable rubs, murmurs or gallops. ABDOMEN: Obese. Soft, nontender, and nondistended. There is no rebound, voluntary guarding, or rigidity. : Deferred. No Dhillon. EXTREMITIES: Non-edematous and not cyanotic. No clubbing. Good capillary refill. SKIN: No skin breakdown. Vital Signs (last 8hr) Date Time Temp Pulse Resp B/P (MAP) Pulse Ox O2 Delivery O2 Flow Rate FiO2 09/23/24 11:53 97.9 58 21 123/72 94 Room Air 21 09/23/24 08:35 94 Room Air* 0 21 09/23/24 08:00 98.1 58 20 115/57 94 Room Air 21 LABS: Laboratory: Test 09/23/24 11:36 09/23/24 04:06 09/22/24 18:51 09/21/24 23:03 Range/Units Whole Blood Glucose 84 70-110 MG/DL White Blood Count 5.3 4.8-10.8 K/uL Red Blood Count 4.41 L 4.50-6.20 MIL/uL Hemoglobin 14.2 14.0-18.0 g/dL Hematocrit 41.0 L 42-54 % Mean Corpuscular Volume 93.0 79-99 fL Mean Corpuscular Hemoglobin 32.2 27.0-33.0 pg Mean Corpuscular Hemoglobin Concent 34.6 32.0-36.0 g/dL Red Cell Distribution Width 13.1 11.0-15.5 % Platelet Count 119 L 130-400 K/uL Mean Platelet Volume 10.6 H 7.5-10.5 fL Immature Granulocyte % (Auto) 0.6 0-1 % Neutrophils (%) (Auto) 51.5 40.0-77.0 % Lymphocytes (%) (Auto) 36.2 21.0-51.0 % Monocytes (%) (Auto) 7.7 3.0-13.0 % Eosinophils (%) (Auto) 3.8 0.0-8.0 % Basophils (%) (Auto) 0.2 0.0-5.0 % Neutrophils # (Auto) 2.8 1.8-7.7 K/uL Lymphocytes # (Auto) 1.9 1.0-4.8 K/uL Monocytes # (Auto) 0.4 0.1-1.0 K/uL Eosinophils # (Auto) 0.20 0.00-0.70 K/uL Basophils # (Auto) 0.01 0.00-0.20 K/uL Absolute Immature Granulocyte (auto 0.03 0-1 K/uL Nucleated Red Blood Cells 0.0 0.0-0.19 % Sodium Level 142 136-145 mmol/L Potassium Level 3.8 3.5-5.1 mmol/L Chloride Level 106 101-111 mmol/L Carbon Dioxide Level 29 21-32 mmol/L Blood Urea Nitrogen 13 7-18 mg/dL Creatinine 1.1 0.5-1.3 mg/dL Glomerular Filtration Rate Calc 82 >90 mL/min Random Glucose 80 70-105 mg/dL Total Calcium 8.4 L 8.5-10.1 mg/dL Phosphorus Level 3.3 2.5-4.9 mg/dL Magnesium Level 1.80 1.80-2.40 mg/dL Total Bilirubin 0.6 0.2-1.0 mg/dL Aspartate Amino Transf (AST/SGOT) 18 10-37 U/L Alanine Aminotransferase (ALT/SGPT) 26 12-78 U/L Alkaline Phosphatase 70 50-136 U/L Total Protein 6.0 6.0-8.3 g/dL Albumin 3.0 L 3.5-5.0 g/dL Urine Color LIGHT-YELLOW YELLOW Urine Appearance CLEAR CLEAR Urine pH 7.0 5.0-8.0 Urine Specific [place] 1.016 1.001-1.031 Urine Protein NEGATIVE NEGATIVE mg/dL Urine Glucose (UA) NEGATIVE NEGATIVE mg/dL Urine Ketones NEGATIVE NEGATIVE mg/dL Urine Occult Blood NEGATIVE NEGATIVE Urine Nitrate NEGATIVE NEGATIVE Urine Bilirubin NEGATIVE NEGATIVE mg/dL Urine Urobilinogen 0.2 0.2-1.0 mg/dL Urine Leukocyte Esterase NEGATIVE NEGATIVE Zaida/uL Urine RBC None 0-1 /HPF Urine WBC 0-1 0-1 /HPF Urine Bacteria None None Seen /HPF Total Creatine Kinase 115 21-232 U/L Amylase Level 30 25-115 U/L Lipase 36 16-77 U/L Current Medications Medications (Trade) Dose Ordered Sig/Padmini Route PRN Reason Start Time Stop Time Status Last Admin Dose Admin Acetaminophen (TYLenol 325MG TAB) 650 mg Q6H PRN PO FEVER/MILD PAIN LEVEL 1-3 09/22/24 04:30 10/22/24 04:29 09/22/24 20:29 650 MG Acetaminophen (TYLenol 650MG SUPPOSITORY) 650 mg Q6H PRN RC FEVER / MILD PAIN 1-3 IF NPO 09/22/24 04:30 10/22/24 04:29 Dextrose (D50w) 50 ml AD PRN IV HYPOGLYCEMIA PROTOCOL 09/22/24 04:30 10/22/24 04:29 Divalproex Sodium (DepaKOTE 250 mg) 1,000 mg BID PO 09/22/24 21:00 10/22/24 20:59 09/23/24 09:07 1,000 MG Docusate Sodium (COLace 100MG CAP) 100 mg BID PRN PO CONSTIPATION 09/22/24 04:30 10/22/24 04:29 Glucagon (Glucagon 1mg Kit) 1 mg AD PRN IM HYPOGLYCEMIA PROTOCOL 09/22/24 04:30 10/22/24 04:29 Home Med (Home Medication) Zonisamide 25MG 1 CAP BID PO 09/22/24 21:00 10/22/24 20:59 09/23/24 09:07 1 EACH Hydromorphone HCl (DiLAUDid 0.5MG INJ) 0.5 mg Q4H PRN IVP SEVERE PAIN (7-10) 09/22/24 01:30 09/27/24 01:29 Insulin Human Regular (humuLIN R 100 UNIT/ML 3ML) INSULIN SLIDING SCAL... ACHS SQ 09/22/24 07:30 10/22/24 07:29 Ketorolac Tromethamine (toRADol) 30 mg Q6H PRN IVP MODERATE PAIN (4-6) 09/22/24 01:30 09/27/24 01:29 Labetalol HCl (TRANdate 20MG SYG) 10 mg Q2H PRN IV SBP GREATER THAN 180 09/22/24 04:30 10/22/24 04:29 Lactated Ringer's 1,000 ml @ 100 mls/hr Q10H IV 09/22/24 01:30 10/22/24 01:29 09/23/24 09:06 100 MLS/HR Lactulose (Constulose 20gm/ 30ml Udcup) 20 gm Q6H PRN PO CONSTIPATION 09/22/24 04:30 10/22/24 04:29 Levetiracetam (kepPRA 250 MG TABLET) 250 mg DAILY PO 09/23/24 09:00 09/22/24 14:19 DC Levetiracetam (kepPRA 500 MG TABLET) 500 mg DAILY PO 09/23/24 09:00 09/22/24 14:19 DC Levetiracetam (kepPRA 500 MG TABLET) 1,500 mg HS PO 09/22/24 21:00 09/22/24 14:19 DC Levetiracetam 1500 mg/Sodium Chloride 100 ml @ 400 mls/hr HS IV 09/22/24 21:00 10/22/24 20:59 09/22/24 20:21 400 MLS/HR Levetiracetam 750 mg/Sodium Chloride 100 ml @ 400 mls/hr DAILY IV 09/23/24 09:00 10/23/24 08:59 09/23/24 09:07 400 MLS/HR Magnesium Sulfate 50 ml @ 0 mls/hr PROTOCOL PRN IV MAGNESIUM PROTOCOL 09/22/24 04:30 10/22/24 04:29 09/23/24 06:11 25 MLS/HR Ondansetron HCl (zoFRAN 4MG INJ) 4 mg Q6H PRN IVP NAUSEA/VOMITING 09/22/24 04:30 10/22/24 04:29 Pharmacy Profile Note (Pharmacy Communication) 1 each ONCE MISC 09/22/24 14:00 09/22/24 14:23 DC Piperacillin Sod/ Tazobactam Sod (Zosyn 3.375gm+NS 50ml) 3.375 gm Q8H IVPB 09/22/24 09:00 10/02/24 08:59 09/23/24 09:07 3.375 GM Potassium Chloride 100 ml @ 100 mls/hr AD PRN IV POTASSIUM PROTOCOL 09/22/24 04:30 10/22/24 04:29 Potassium Chloride (K-Dur/Klor-Con 20meq) 20 meq AD PRN PO POTASSIUM PROTOCOL 09/22/24 04:30 10/22/24 04:29 Potassium Chloride (KCl 10% Elixir 20meq/15ml) 20 meq AD PRN PO POTASSIUM PROTOCOL 09/22/24 04:30 10/22/24 04:29 Sodium Chloride (NS 50ml) 50 ml AD IV 09/22/24 09:00 09/22/24 07:38 DC Temazepam (restORIL 15 MG CAP) 15 mg HS PRN PO INSOMNIA/SLEEP 09/22/24 04:30 10/22/24 04:29 DIAGNOSTICS / RADIOLOGY: [ ] ASSESSMENT: Acute cholecystitis, POA Acute abdominal pain, POA Acute on chronic kidney disease, GFR 82 (last GFR on 11/29/15 was 59) Hypoalbuminemia History of seizures Morbid obese, BMI 49.6 PLAN: Admit patient to medical floor. NPO for now. IVF's: LR at 5 per hour Consult general surgeon. neurologist Antibiotic: Continue Zosyn 3.375 IV Q8 hours. Imaging: HIDA scan and CT abd/pelvis noted Surgery: Possible Lap paxton specific details on clearance for surgery if no surgery in24 hours can proceed with surgery or if any seizures occur delayed by one day. Patient to continue with anti epileptic medications valproic 1000 mg p.o. b.i.d, Levetiracetam 750 mgm po am and 1500 mg po evening, Zonisamide 25 mg po bid. P.r.n. medications for: Pain management, nausea, vomiting, constipation, hypertension. Glucometer checks a.c. and HS as needed with insulin regular sliding scale cov erage as needed. Blood pressure checks every4 hours and as needed. Reconcile home medications once available. Keppra will be adjusted change to IV route while NPO Monitor renal and liver function. Monitor electrolytes and treat accordingly.. A.m. labs. GI and DVT prophylaxis. Further orders upon hospitalization course. ATTESTATION BY PHYSICIAN I have seen and examined the patient. I reviewed the documentation, medical decision making, and treatment plan as noted by the mid-level provider above. I agree with the findings and plan of care. Abida Ortega MD, ELIZABETH NP Sep 23, 2024 12:52
--- NOTE | 2024-09-23 13:40 | PN ---
[facility] PROGRESS NOTE Date of Service: Sep 23, 2024 Time of Service: 13:36 SUBJECTIVE: [ ] This is a 49-year-old male presents in ED with intractable abdominal pain right upper quad ER workup was consistent acute cholecystitis. Was seen by general surgeon order HIDA scan for further evaluation, imaging CT abdomen pelvis with oral and IV contrast for further evaluation. Surgery needed neurology clearance 09/23/[address] abdomen pelvis evidence of acute cholecystitis. No seizures reported overnight review neurology note in detail if patient is seizure free until tomorrow cleared for surgery. If any seizures activity occurs recommends delay non emergent surgery by one day. Patient is fully awake alert oriented x3. REVIEW OF SYSTEMS 12-point ROS reviewed with the patient. All pertinent positives mentioned above. Otherwise negative, noncontributory, nonpertinent. PHYSICAL EXAM GENERAL APPEARANCE: The patient is awake, alert, and oriented, in no acute cardiopulmonary distress. NEUROLOGICAL: Cranial nerves II-XII grossly intact. Motor is 5/5 in bilateral upper and lower extremities proximal to distal. No sensory deficits. HEENT: Face is symmetric. Pupils are equal and reactive. Extraocular movements are intact. NECK: Supple. No JVD. No thyromegaly. No submental, submandibular, pre-/postauricular, occipital or supraclavicular lymphadenopathy. CHEST: Normal chest expansion. No Telemetry. LUNGS: Absence of any rales, rhonchi or any wheezing. CARDIOVASCULAR: Regular. S1 and S2 normal. No appreciable rubs, murmurs or gallops. ABDOMEN: Obese. Soft, nontender, and nondistended. There is no rebound, voluntary guarding, or rigidity. : Deferred. No Dhillon. EXTREMITIES: Non-edematous and not cyanotic. No clubbing. Good capillary refill. SKIN: No skin breakdown. Vital Signs (last 8hr) Date Time Temp Pulse Resp B/P (MAP) Pulse Ox O2 Delivery O2 Flow Rate FiO2 09/23/24 11:53 97.9 58 21 123/72 94 Room Air 21 09/23/24 08:35 94 Room Air* 0 21 09/23/24 08:00 98.1 58 20 115/57 94 Room Air 21 LABS: Laboratory: Test 09/23/24 11:36 09/23/24 04:06 09/22/24 18:51 09/21/24 23:03 Range/Units Whole Blood Glucose 84 70-110 MG/DL White Blood Count 5.3 4.8-10.8 K/uL Red Blood Count 4.41 L 4.50-6.20 MIL/uL Hemoglobin 14.2 14.0-18.0 g/dL Hematocrit 41.0 L 42-54 % Mean Corpuscular Volume 93.0 79-99 fL Mean Corpuscular Hemoglobin 32.2 27.0-33.0 pg Mean Corpuscular Hemoglobin Concent 34.6 32.0-36.0 g/dL Red Cell Distribution Width 13.1 11.0-15.5 % Platelet Count 119 L 130-400 K/uL Mean Platelet Volume 10.6 H 7.5-10.5 fL Immature Granulocyte % (Auto) 0.6 0-1 % Neutrophils (%) (Auto) 51.5 40.0-77.0 % Lymphocytes (%) (Auto) 36.2 21.0-51.0 % Monocytes (%) (Auto) 7.7 3.0-13.0 % Eosinophils (%) (Auto) 3.8 0.0-8.0 % Basophils (%) (Auto) 0.2 0.0-5.0 % Neutrophils # (Auto) 2.8 1.8-7.7 K/uL Lymphocytes # (Auto) 1.9 1.0-4.8 K/uL Monocytes # (Auto) 0.4 0.1-1.0 K/uL Eosinophils # (Auto) 0.20 0.00-0.70 K/uL Basophils # (Auto) 0.01 0.00-0.20 K/uL Absolute Immature Granulocyte (auto 0.03 0-1 K/uL Nucleated Red Blood Cells 0.0 0.0-0.19 % Sodium Level 142 136-145 mmol/L Potassium Level 3.8 3.5-5.1 mmol/L Chloride Level 106 101-111 mmol/L Carbon Dioxide Level 29 21-32 mmol/L Blood Urea Nitrogen 13 7-18 mg/dL Creatinine 1.1 0.5-1.3 mg/dL Glomerular Filtration Rate Calc 82 >90 mL/min Random Glucose 80 70-105 mg/dL Total Calcium 8.4 L 8.5-10.1 mg/dL Phosphorus Level 3.3 2.5-4.9 mg/dL Magnesium Level 1.80 1.80-2.40 mg/dL Total Bilirubin 0.6 0.2-1.0 mg/dL Aspartate Amino Transf (AST/SGOT) 18 10-37 U/L Alanine Aminotransferase (ALT/SGPT) 26 12-78 U/L Alkaline Phosphatase 70 50-136 U/L Total Protein 6.0 6.0-8.3 g/dL Albumin 3.0 L 3.5-5.0 g/dL Urine Color LIGHT-YELLOW YELLOW Urine Appearance CLEAR CLEAR Urine pH 7.0 5.0-8.0 Urine Specific [place] 1.016 1.001-1.031 Urine Protein NEGATIVE NEGATIVE mg/dL Urine Glucose (UA) NEGATIVE NEGATIVE mg/dL Urine Ketones NEGATIVE NEGATIVE mg/dL Urine Occult Blood NEGATIVE NEGATIVE Urine Nitrate NEGATIVE NEGATIVE Urine Bilirubin NEGATIVE NEGATIVE mg/dL Urine Urobilinogen 0.2 0.2-1.0 mg/dL Urine Leukocyte Esterase NEGATIVE NEGATIVE Zaida/uL Urine RBC None 0-1 /HPF Urine WBC 0-1 0-1 /HPF Urine Bacteria None None Seen /HPF Total Creatine Kinase 115 21-232 U/L Amylase Level 30 25-115 U/L Lipase 36 16-77 U/L Current Medications Medications (Trade) Dose Ordered Sig/Padmini Route PRN Reason Start Time Stop Time Status Last Admin Dose Admin Acetaminophen (TYLenol 325MG TAB) 650 mg Q6H PRN PO FEVER/MILD PAIN LEVEL 1-3 09/22/24 04:30 10/22/24 04:29 09/22/24 20:29 650 MG Acetaminophen (TYLenol 650MG SUPPOSITORY) 650 mg Q6H PRN RC FEVER / MILD PAIN 1-3 IF NPO 09/22/24 04:30 10/22/24 04:29 Dextrose (D50w) 50 ml AD PRN IV HYPOGLYCEMIA PROTOCOL 09/22/24 04:30 10/22/24 04:29 Divalproex Sodium (DepaKOTE 250 mg) 1,000 mg BID PO 09/22/24 21:00 10/22/24 20:59 09/23/24 09:07 1,000 MG Docusate Sodium (COLace 100MG CAP) 100 mg BID PRN PO CONSTIPATION 09/22/24 04:30 10/22/24 04:29 Glucagon (Glucagon 1mg Kit) 1 mg AD PRN IM HYPOGLYCEMIA PROTOCOL 09/22/24 04:30 10/22/24 04:29 Home Med (Home Medication) Zonisamide 25MG 1 CAP BID PO 09/22/24 21:00 10/22/24 20:59 09/23/24 09:07 1 EACH Hydromorphone HCl (DiLAUDid 0.5MG INJ) 0.5 mg Q4H PRN IVP SEVERE PAIN (7-10) 09/22/24 01:30 09/27/24 01:29 Insulin Human Regular (humuLIN R 100 UNIT/ML 3ML) INSULIN SLIDING SCAL... ACHS SQ 09/22/24 07:30 10/22/24 07:29 Ketorolac Tromethamine (toRADol) 30 mg Q6H PRN IVP MODERATE PAIN (4-6) 09/22/24 01:30 09/27/24 01:29 Labetalol HCl (TRANdate 20MG SYG) 10 mg Q2H PRN IV SBP GREATER THAN 180 09/22/24 04:30 10/22/24 04:29 Lactated Ringer's 1,000 ml @ 100 mls/hr Q10H IV 09/22/24 01:30 10/22/24 01:29 09/23/24 09:06 100 MLS/HR Lactulose (Constulose 20gm/ 30ml Udcup) 20 gm Q6H PRN PO CONSTIPATION 09/22/24 04:30 10/22/24 04:29 Levetiracetam (kepPRA 250 MG TABLET) 250 mg DAILY PO 09/23/24 09:00 09/22/24 14:19 DC Levetiracetam (kepPRA 500 MG TABLET) 500 mg DAILY PO 09/23/24 09:00 09/22/24 14:19 DC Levetiracetam (kepPRA 500 MG TABLET) 1,500 mg HS PO 09/22/24 21:00 09/22/24 14:19 DC Levetiracetam 1500 mg/Sodium Chloride 100 ml @ 400 mls/hr HS IV 09/22/24 21:00 10/22/24 20:59 09/22/24 20:21 400 MLS/HR Levetiracetam 750 mg/Sodium Chloride 100 ml @ 400 mls/hr DAILY IV 09/23/24 09:00 10/23/24 08:59 09/23/24 09:07 400 MLS/HR Magnesium Sulfate 50 ml @ 0 mls/hr PROTOCOL PRN IV MAGNESIUM PROTOCOL 09/22/24 04:30 10/22/24 04:29 09/23/24 06:11 25 MLS/HR Ondansetron HCl (zoFRAN 4MG INJ) 4 mg Q6H PRN IVP NAUSEA/VOMITING 09/22/24 04:30 10/22/24 04:29 Pharmacy Profile Note (Pharmacy Communication) 1 each ONCE MISC 09/22/24 14:00 09/22/24 14:23 DC Piperacillin Sod/ Tazobactam Sod (Zosyn 3.375gm+NS 50ml) 3.375 gm Q8H IVPB 09/22/24 09:00 10/02/24 08:59 09/23/24 09:07 3.375 GM Potassium Chloride 100 ml @ 100 mls/hr AD PRN IV POTASSIUM PROTOCOL 09/22/24 04:30 10/22/24 04:29 Potassium Chloride (K-Dur/Klor-Con 20meq) 20 meq AD PRN PO POTASSIUM PROTOCOL 09/22/24 04:30 10/22/24 04:29 Potassium Chloride (KCl 10% Elixir 20meq/15ml) 20 meq AD PRN PO POTASSIUM PROTOCOL 09/22/24 04:30 10/22/24 04:29 Sodium Chloride (NS 50ml) 50 ml AD IV 09/22/24 09:00 09/22/24 07:38 DC Temazepam (restORIL 15 MG CAP) 15 mg HS PRN PO INSOMNIA/SLEEP 09/22/24 04:30 10/22/24 04:29 DIAGNOSTICS / RADIOLOGY: [ ] ASSESSMENT: Acute cholecystitis, POA Acute abdominal pain, POA Acute on chronic kidney disease, GFR 82 (last GFR on 11/29/15 was 59) Hypoalbuminemia History of seizures Morbid obese, BMI 49.6 PLAN: Admit patient to medical floor. NPO for now otherwise clear liquid diet IVF's: LR at 100 per hour Consult general surgeon. neurologist Antibiotic: Continue Zosyn 3.375 IV Q8 hours. Imaging: HIDA scan and CT abd/pelvis noted Surgery: Possible Lap paxton specific details on clearance for surgery if no reyna william in24 hours can proceed with surgery or if any seizures occur delayed by one day. Patient to continue with anti epileptic medications valproic 1000 mg p.o. b.i.d, Levetiracetam 750 mgm po am and 1500 mg po evening, Zonisamide 25 mg po bid. P.r.n. medications for: Pain management, nausea, vomiting, constipation, hypertension. Glucometer checks a.c. and HS as needed with insulin regular sliding scale coverage as needed. Blood pressure checks every4 hours and as needed. Reconcile home medications once available. Keppra will be adjusted change to IV route while NPO Monitor renal and liver function. Monitor electrolytes and treat accordingly.. A.m. labs. GI prophylaxis not indicated DVT prophylaxisSCDs, hold lovenox if going to surgery attention time > 30 minutes SERGE MILLER IV, MD Sep 23, 2024 13:40
--- NOTE | 2024-09-23 16:15 | NUR ---
INFORMED CONSENT SIGNED FOR ROBOTIC ASSISTED LAPARASCOPIC POSSIBLE OPEN CHOLECYSTECTOMY TOMORROW. WILL BE NPO AFTER MIDNIGHT
[2024-09-23] MEDS: PoTASSium chl 10% ELIXIR 20MEQ 20 MEQ/15 ML UDCUP PO PRN (20:48)
[2024-09-24] VITALS (26 sets, daily range): BP systolic 111–154; BP diastolic 59–82; PULSE 52–83; RESP 15–20; TEMP 97.5–98.9; O2SAT 91–93
--- NOTE | 2024-09-24 02:25 | NUR ---
nurse note patient alert and oriented times 3. plan of care discussed with him and he verbalized understanding. patient had a shower tonight. he is npo after midnight. he has no pain. He is ambulatory without issues. I let pump house operator, yung, know about the procedure and it is scheduled for 10:30 am. Patient has slept about 5 hours tonight. call light within reach, bed alarm on, 2 side rails up. will continue to monitor patient.
[2024-09-24 04:24] LABS: IMMATURE GRANULOCYTE ABSOLUTE 0.04 K/uL (0-1); NUCLEATED RED BLOOD CELLS 0.0 % (0.0-0.19); PLATELET COUNT (AUTO) 110 K/uL (130-400); RED BLOOD CELL COUNT(AUTO) 4.18 MIL/uL (4.50-6.20); RED CELL DISTRIBUTION WIDTH 13.2 % (11.0-15.5); WHITE BLOOD COUNT (AUTO) 4.6 K/uL (4.8-10.8)
[2024-09-24 04:44] LABS: CREATININE 1.1 mg/dL (0.5-1.3); GLOMERULAR FILTR. RATE CALC 82.0 mL/min (>90); GLUCOSE,RANDOM 87.0 mg/dL (70-105); SODIUM SERUM 142.0 mmol/L (136-145); UREA NITROGEN, BLOOD 11.0 mg/dL (7-18)
[2024-09-24] MEDS: PoTASSium chloRIDE 20MEQ ER 20 MEQ ERTAB PO PRN (05:37)
--- NOTE | 2024-09-24 08:25 | NUR ---
TAKEN OFF UNIT TO THE ER VIA HOSPITAL BED
[2024-09-24] MEDS: ZOSYN 3.375GM+NS 50ML 50 ML ONE (08:52)
[2024-09-24] MEDS ORDERED: LIDOCAINE PF 100MG/5ML (2%) SYRINGE 5ML ONE (09:19)
[2024-09-24] MEDS ORDERED: SUCCINYLCHOLINE CHLORIDE 20 MG/ML 10 ML VIAL ONE (09:19)
[2024-09-24] MEDS ORDERED: NEOSTIGMINE METHYLSULFATE 1MG/ML IV ONE (09:20)
[2024-09-24] MEDS ORDERED: GLYCOPYRROLATE 0.2 MG/ML 5 ML VIAL ONE (09:20)
[2024-09-24] MEDS ORDERED: MIDAZOLAM HCL 1 MG/ML 2ML VIAL ONE (09:21)
[2024-09-24] MEDS: LIDOCAINE 1%-EPI 1:100,000 20 ML VIAL ONE (09:52)
--- NOTE | 2024-09-24 11:10 | PN ---
[facility] PROGRESS NOTE Date of Service: Sep 24, 2024 Time of Service: 10:59 SUBJECTIVE: [ ] This is a 49-year-old male presents in ED with intractable abdominal pain right upper quad ER workup was consistent acute cholecystitis. Was seen by general surgeon order HIDA scan for further evaluation, imaging CT abdomen pelvis with oral and IV contrast for further evaluation. Surgery needed neurology clearance 09/23/[address] abdomen pelvis evidence of acute cholecystitis. No seizures reported overnight review neurology note in detail if patient is seizure free until tomorrow cleared for surgery. If any seizures activity occurs recommends delay non emergent surgery by one day. Patient is fully awake alert oriented x3. 09/24 patient was pending to undergo cholecystectomy. No acute events reported overnight. REVIEW OF SYSTEMS 12-point ROS reviewed with the patient. All pertinent positives mentioned above. Otherwise negative, noncontributory, nonpertinent. PHYSICAL EXAM GENERAL APPEARANCE: The patient is awake, alert, and oriented, in no acute cardiopulmonary distress. NEUROLOGICAL: Cranial nerves II-XII grossly intact. Motor is 5/5 in bilateral upper and lower extremities proximal to distal. No sensory deficits. HEENT: Face is symmetric. Pupils are equal and reactive. Extraocular movements are intact. NECK: Supple. No JVD. No thyromegaly. No submental, submandibular, pre- /postauricular, occipital or supraclavicular lymphadenopathy. CHEST: Normal chest expansion. No Telemetry. LUNGS: Absence of any rales, rhonchi or any wheezing. CARDIOVASCULAR: Regular. S1 and S2 normal. No appreciable rubs, murmurs or gallops. ABDOMEN: Obese. Soft, nontender, and nondistended. There is no rebound, voluntary guarding, or rigidity. : Deferred. No Dhillon. EXTREMITIES: Non-edematous and not cyanotic. No clubbing. Good capillary refill. SKIN: No skin breakdown. Vital Signs (last 8hr) Date Time Temp Pulse Resp B/P (MAP) Pulse Ox O2 Delivery O2 Flow Rate FiO2 09/24/24 08:00 97.5 52 19 117/62 92 Room Air 09/24/24 07:46 93 Room Air* 0 21 09/24/24 03:46 98.1 56 18 115/59 93 Room Air LABS: Laboratory: Test 09/24/24 05:04 09/24/24 04:13 09/23/24 04:06 09/22/24 18:51 Range/Units Whole Blood Glucose 91 70-110 MG/DL White Blood Count 4.6 L 4.8-10.8 K/uL Red Blood Count 4.18 L 4.50-6.20 MIL/uL Hemoglobin 13.4 L 14.0-18.0 g/dL Hematocrit 39.6 L 42-54 % Mean Corpuscular Volume 94.7 79-99 fL Mean Corpuscular Hemoglobin 32.1 27.0-33.0 pg Mean Corpuscular Hemoglobin Concent 33.8 32.0-36.0 g/dL Red Cell Distribution Width 13.2 11.0-15.5 % Platelet Count 110 L 130-400 K/uL Mean Platelet Volume 10.8 H 7.5-10.5 fL Immature Granulocyte % (Auto) 0.9 0-1 % Neutrophils (%) (Auto) 50.1 40.0-77.0 % Lymphocytes (%) (Auto) 35.6 21.0-51.0 % Monocytes (%) (Auto) 8.6 3.0-13.0 % Eosinophils (%) (Auto) 4.6 0.0-8.0 % Basophils (%) (Auto) 0.2 0.0-5.0 % Neutrophils # (Auto) 2.3 1.8-7.7 K/uL Lymphocytes # (Auto) 1.6 1.0-4.8 K/uL Monocytes # (Auto) 0.4 0.1-1.0 K/uL Eosinophils # (Auto) 0.21 0.00-0.70 K/uL Basophils # (Auto) 0.01 0.00-0.20 K/uL Absolute Immature Granulocyte (auto 0.04 0-1 K/uL Nucleated Red Blood Cells 0.0 0.0-0.19 % Sodium Level 142 136-145 mmol/L Potassium Level 3.7 3.5-5.1 mmol/L Chloride Level 107 101-111 mmol/L Carbon Dioxide Level 29 21-32 mmol/L Blood Urea Nitrogen 11 7-18 mg/dL Creatinine 1.1 0.5-1.3 mg/dL Glomerular Filtration Rate Calc 82 >90 mL/min Random Glucose 87 70-105 mg/dL Total Calcium 8.5 8.5-10.1 mg/dL Magnesium Level 2.10 1.80-2.40 mg/dL Phosphorus Level 3.3 2.5-4.9 mg/dL Total Bilirubin 0.6 0.2-1.0 mg/dL Aspartate Amino Transf (AST/SGOT) 18 10-37 U/L Alanine Aminotransferase (ALT/SGPT) 26 12-78 U/L Alkaline Phosphatase 70 50-136 U/L Total Protein 6.0 6.0-8.3 g/dL Albumin 3.0 L 3.5-5.0 g/dL Urine Color LIGHT-YELLOW YELLOW Urine Appearance CLEAR CLEAR Urine pH 7.0 5.0-8.0 Urine Specific [facility] 1.016 1.001-1.031 Urine Protein NEGATIVE NEGATIVE mg/dL Urine Glucose (UA) NEGATIVE NEGATIVE mg/dL Urine Ketones NEGATIVE NEGATIVE mg/dL Urine Occult Blood NEGATIVE NEGATIVE Urine Nitrate NEGATIVE NEGATIVE Urine Bilirubin NEGATIVE NEGATIVE mg/dL Urine Urobilinogen 0.2 0.2-1.0 mg/dL Urine Leukocyte Esterase NEGATIVE NEGATIVE Zaida/uL Urine RBC None 0-1 /HPF Urine WBC 0-1 0-1 /HPF Urine Bacteria None None Seen /HPF Current Medications Medications (Trade) Dose Ordered Sig/Padmini Route PRN Reason Start Time Stop Time Status Last Admin Dose Admin Acetaminophen (TYLenol 325MG TAB) 650 mg Q6H PRN PO FEVER/MILD PAIN LEVEL 1-3 09/22/24 04:30 10/22/24 04:29 09/22/24 20:29 650 MG Acetaminophen (TYLenol 650MG SUPPOSITORY) 650 mg Q6H PRN RC FEVER / MILD PAIN 1-3 IF NPO 09/22/24 04:30 10/22/24 04:29 Dextrose (D50w) 50 ml AD PRN IV HYPOGLYCEMIA PROTOCOL 09/22/24 04:30 10/22/24 04:29 Divalproex Sodium (DepaKOTE 250 mg) 1,000 mg BID PO 09/22/24 21:00 10/22/24 20:59 09/24/24 08:21 1,000 MG Docusate Sodium (COLace 100MG CAP) 100 mg BID PRN PO CONSTIPATION 09/22/24 04:30 10/22/24 04:29 Glucagon (Glucagon 1mg Kit) 1 mg AD PRN IM HYPOGLYCEMIA PROTOCOL 09/22/24 04:30 10/22/24 04:29 Home Med (Home Medication) Zonisamide 25MG 1 CAP BID PO 09/22/24 21:00 10/22/24 20:59 09/24/24 08:21 1 EACH Hydromorphone HCl (DiLAUDid 0.5MG INJ) 0.5 mg Q4H PRN IVP SEVERE PAIN (7-10) 09/22/24 01:30 09/27/24 01:29 Insulin Human Regular (humuLIN R 100 UNIT/ML 3ML) INSULIN SLIDING SCAL... ACHS SQ 09/22/24 07:30 10/22/24 07:29 Ketorolac Tromethamine (toRADol) 30 mg Q6H PRN IVP MODERATE PAIN (4-6) 09/22/24 01:30 09/27/24 01:29 Labetalol HCl (TRANdate 20MG SYG) 10 mg Q2H PRN IV SBP GREATER THAN 180 09/22/24 04:30 10/22/24 04:29 Lactated Ringer's 1,000 ml @ 100 mls/hr Q10H IV 09/22/24 01:30 10/22/24 01:29 09/23/24 23:14 100 MLS/HR Lactulose (Constulose 20gm/ 30ml Udcup) 20 gm Q6H PRN PO CONSTIPATION 09/22/24 04:30 10/22/24 04:29 Levetiracetam (kepPRA 250 MG TABLET) 250 mg DAILY PO 09/23/24 09:00 09/22/24 14:19 DC Levetiracetam (kepPRA 500 MG TABLET) 500 mg DAILY PO 09/23/24 09:00 09/22/24 14:19 DC Levetiracetam (kepPRA 500 MG TABLET) 1,500 mg HS PO 09/22/24 21:00 09/22/24 14:19 DC Levetiracetam 1500 mg/Sodium Chloride 100 ml @ 400 mls/hr HS IV 09/22/24 21:00 10/22/24 20:59 09/23/24 20:48 400 MLS/HR Levetiracetam 750 mg/Sodium Chloride 100 ml @ 400 mls/hr DAILY IV 09/23/24 09:00 10/23/24 08:59 09/24/24 08:45 400 MLS/HR Magnesium Sulfate 50 ml @ 0 mls/hr PROTOCOL PRN IV MAGNESIUM PROTOCOL 09/22/24 04:30 10/22/24 04:29 09/23/24 06:11 25 MLS/HR Ondansetron HCl (zoFRAN 4MG INJ) 4 mg Q6H PRN IVP NAUSEA/VOMITING 09/22/24 04:30 10/22/24 04:29 Pharmacy Profile Note (Pharmacy Communication) 1 each ONCE MISC 09/22/24 14:00 09/22/24 14:23 DC Piperacillin Sod/ Tazobactam Sod (Zosyn 3.375gm+NS 50ml) 3.375 gm Q8H IVPB 09/22/24 09:00 10/02/24 08:59 09/24/24 08:51 3.375 GM Potassium Chloride 100 ml @ 100 mls/hr AD PRN IV POTASSIUM PROTOCOL 09/22/24 04:30 10/22/24 04:29 Potassium Chloride (K-Dur/Klor-Con 20meq) 20 meq AD PRN PO POTASSIUM PROTOCOL 09/22/24 04:30 10/22/24 04:29 09/24/24 05:37 20 MEQ Potassium Chloride (KCl 10% Elixir 20meq/15ml) 20 meq AD PRN PO POTASSIUM PROTOCOL 09/22/24 04:30 10/22/24 04:29 09/23/24 20:48 20 MEQ Sodium Chloride (NS 50ml) 50 ml AD IV 09/22/24 09:00 09/22/24 07:38 DC Temazepam (restORIL 15 MG CAP) 15 mg HS PRN PO INSOMNIA/SLEEP 09/22/24 04:30 10/22/24 04:29 DIAGNOSTICS / RADIOLOGY: [ ] ASSESSMENT: Acute cholecystitis, POA Acute abdominal pain, POA Acute on chronic kidney disease, GFR 82 (last GFR on 11/29/15 was 59) Hypoalbuminemia History of seizures Morbid obese, BMI 49.6 PLAN: Continue Zosyn Trend WBCs Follow up with Neurology, appreciate assistance -continue valproic acid, levetiracetam, zonisamide -monitor for seizures O2 nasal cannula as needed Monitor blood pressure NPO for now No need for GI prophylaxis Continue LR at 100 mL/hour Trend a.m. BMP Replete electrolytes as necessary DVT prophylaxis with Lovenox Trend a.m. CBC Full code Case was discussed with patient's nurse at bedside Attention time greater than 30 minutes SERGE MILLER IV, MD Sep 24, 2024 11:10
--- NOTE | 2024-09-24 11:28 | OP ---
DATE OF SERVICE: 09/24/2024 PREOPERATIVE DIAGNOSES: ACUTE CHOLECYSTITIS CHOLELITHIASIS MORBID OBESITY POSTOPERATIVE DIAGNOSES: ACUTE CHOLECYSTITIS CHOLELITHIASIS MORBID OBESITY PROCEDURE PERFORMED: Laparoscopic cholecystectomy. SURGEON: Rob Verduzco MD ANESTHESIA: General. ESTIMATED BLOOD LOSS: Minimal. FINDINGS: 1. SEVERE right upper quadrant inflammatory adhesions. 2. Enlarged TENSE gallbladder. 3. Cholelithiasis. 4. THICK EDEMATOUS GALLBLADDER WALL SPECIMEN REMOVED: Gallbladder. DRAINS 1. 7 MM NOLA COMPLICATIONS: None. DESCRIPTION OF PROCEDURE: The patient was brought into the operating room. A fter proper identification, the patient was placed on operating table in the supine position. General anesthesia was administered and the patient was endotracheally intubated. Attention was then focus in the area of the abdomen. The same was prepped and draped in the usual sterile fashion. An appropriate timeout was then carried out at this point. Then I proceeded by making a supraumbilical incision. The incision was carried through the skin and subcutaneous tissue until the fascia was identified. The fascia was then carefully incised. Stay stitches were placed on either side of the fascia and the abdominal cavity was entered. The Von port was then introduced. CO2 was insufflated into the abdomen and the laparoscope was introduced. Inspection of the abdomen showed evidence of SEVERE right upper quadrant inflammatory adhesions and ENLARGED TENSE GALLBLADDER gallbladder. Three additional ports were then placed, one in the epigastric region 2 in the right upper quadrant. The patient was then placed in reverse Trendelenburg position rotated to the left. A grasper was then used to grasp the fundus of the gallbladder and the same was retracted cephalad and the inflammatory adhesions in the right upper quadrant was then carefully taken down using the Bovie cautery. At the infundibulum same was retracted lateral and the peritoneal covering the triangle of Calot was then carefully opened. The cystic duct and the cystic artery were then identified. Each of these structures were then carefully skeletonized for a distance of about 2 cm. Proximal distal clippings were then applied in each of these structures were then transected between clips. The gallbladder was then removed from the gallbladder fossa using the Bovie cautery, care taken not to injure the liver. The gallbladder was then extracted from the abdomen using an Endopouch. Copious amounts of irrigation was carried out at this point. Hemostasis was noted to be adequate. I PROCEEDED TO PLACE A 7 MM MAKI-PIMENTEL DRAIN IN THE RIGHT UPPER QUADRANT IN THE USUAL FASHION So, at this point, I proceeded by closing the wound. Ports were withdrawn under vision. CO2 was let out of the abdomen. Supraumbilical fascia was approximated together using 0 Vicryl [id number] stitches and the skin was approximated together using 4-0 Monocryl subcuticular closure. Steri-Strips and sterile dressings were then applied. Instrument and sponge count was taken found to be correct 2. The patient was then woken up, extubated and taken to the recovery room in stable condition. The patient tolerated the procedure well. ROB JARAMILLO MD Sep 24, 2024 11:28
--- NOTE | 2024-09-24 12:10 | NUR ---
RETURNED FROM OR, ALERT BUT DROWSY. INCISIONS X4 TO ABD COVERED WITH SURGICAL DRESSING. NOLA DRAIN IN PLACE TO RLQ DRAINING BLOODY OUTPUT. POST OP VITALS TAKEN
--- NOTE | 2024-09-24 12:42 | NUR ---
ADMINISTERED DILAUDID 0.5MG PRN ORDERED. NEW ORDER WAS PLACED S/P SURGERY FOR 1MG BUT WAS NOT VERIFIED. DID ADMINISTER 0.5MG OF DILAUDID SCANNED PRIOR TO DILAUDID ORDER CHANGED AND WAS NOT RECORDED WHEN SAVED. JARAD FOR[facility]
[2024-09-24] MEDS: SIMETHICONE 80 MG TAB.CHEW PO SCH ×2 (18:25→21:56)
--- NOTE | 2024-09-24 18:35 | NUR ---
AMBULATION ATTEMPTED. PATIENT DECLINED HE "WAS TOO DROWSY".
[2024-09-25 03:52] VITALS: BP 112/58; PULSE 65; RESP 19; TEMP 98.5
--- NOTE | 2024-09-25 05:13 | NUR ---
nurse note patient alert and oriented times 4. plan of care discussed with him and he verbalized understanding. patient walked around the nurse's station tonight about 600 feet. He verbalized some soreness on his abdomen relieved by toradol. Roman drain to bulb suction had 60 ml serosanguineous output tonight. Patient has been ambulating to the restroom and voiding without issues. He has slept about 4 hours tonight. I removed his old IV catheter and placed a new 22 gauge iv on his right hand. patient is refusing his scd's tonight because he is constantly ambulating. call light within reach, bed alarm on, 2 side rails up. will continue to monitor patient.
[2024-09-25 07:29] LABS: IMMATURE GRANULOCYTE ABSOLUTE 0.04 K/uL (0-1); NUCLEATED RED BLOOD CELLS 0.0 % (0.0-0.19); PLATELET COUNT (AUTO) 137 K/uL (130-400); RED BLOOD CELL COUNT(AUTO) 4.17 MIL/uL (4.50-6.20); RED CELL DISTRIBUTION WIDTH 13.5 % (11.0-15.5); WHITE BLOOD COUNT (AUTO) 6.4 K/uL (4.8-10.8)
[2024-09-25 07:36] LABS: ASPARTATE AMINOTRANSFERASE 31.0 U/L (10-37); CREATININE 1.2 mg/dL (0.5-1.3); GLOMERULAR FILTR. RATE CALC 74.0 mL/min (>90); GLUCOSE,RANDOM 83.0 mg/dL (70-105); SODIUM SERUM 138.0 mmol/L (136-145); TOTAL PROTEIN, SERUM 6.0 g/dL (6.0-8.3); UREA NITROGEN, BLOOD 10.0 mg/dL (7-18)
[2024-09-25 08:00] VITALS: BP 114/64; PULSE 62; RESP 19; TEMP 98.7
--- NOTE | 2024-09-25 09:21 | PN ---
GENERAL SURGERY PROGRESS NOTE DATE OF SERVICE: Sep 25, 2024 TIME OF SERVICE: 09:21 Patient is doing better Ambulating Tolerating diet Wants to go home PROBLEM LISTS: [ ] Acute cholecystitis Cholelithiasis INTERVAL HISTORY: [ ] S/p laparoscopic cholecystectomy PHYSICAL EXAMINATION: GENERAL: [Patient is lying comfortably in bed, not in any obvious distress.] HEAD: [Normal with no signs of head trauma.] EYES: [Not pale not jaundiced afebrile to touch.] ENT: [ Normal.] NECK: [Supple,no tenderness,no lymphadenopathy,no masses,no thyromegaly ,no bruits, no JVD.] LUNGS: [Clear breath sounds bilaterally. No wheezes, rales, or rhonchi.] HEART: [Regular rate and rhythm. Normal S1 and S2, without murmurs, rub or gallop.] VASC: [No edema. Peripheral pulses normal and equal in all extremities.] ABD: Obese dressings intact : [Normal, no suprapubic tenderness.] LYMPH: [No lymphadenopathy noted.] EXT: [ Warm soft, non tender.] SKIN: [ No rashes or lesions.] NEURO: [ Awake Alert and oriented x3.] LABORATORY: [ ] Hematology Labs: Test 09/25/24 06:59 Range/Units White Blood Count 6.4 4.8-10.8 K/uL Red Blood Count 4.17 L 4.50-6.20 MIL/uL Hemoglobin 13.2 L 14.0-18.0 g/dL Hematocrit 39.0 L 42-54 % Mean Corpuscular Volume 93.5 79-99 fL Mean Corpuscular Hemoglobin 31.7 27.0-33.0 pg Mean Corpuscular Hemoglobin Concent 33.8 32.0-36.0 g/dL Red Cell Distribution Width 13.5 11.0-15.5 % Platelet Count 137 130-400 K/uL Mean Platelet Volume 11.0 H 7.5-10.5 fL Immature Granulocyte % (Auto) 0.6 0-1 % Neutrophils (%) (Auto) 70.1 40.0-77.0 % Lymphocytes (%) (Auto) 19.7 L 21.0-51.0 % Monocytes (%) (Auto) 8.5 3.0-13.0 % Eosinophils (%) (Auto) 0.9 0.0-8.0 % Basophils (%) (Auto) 0.2 0.0-5.0 % Neutrophils # (Auto) 4.5 1.8-7.7 K/uL Lymphocytes # (Auto) 1.3 1.0-4.8 K/uL Monocytes # (Auto) 0.6 0.1-1.0 K/uL Eosinophils # (Auto) 0.06 0.00-0.70 K/uL Basophils # (Auto) 0.01 0.00-0.20 K/uL Absolute Immature Granulocyte (auto 0.04 0-1 K/uL Nucleated Red Blood Cells 0.0 0.0-0.19 % Chemistry Labs: Test 09/25/24 06:59 09/24/24 16:24 09/24/24 04:13 Range/Units Sodium Level 138 136-145 mmol/L Potassium Level 4.0 3.5-5.1 mmol/L Chloride Level 105 101-111 mmol/L Carbon Dioxide Level 28 21-32 mmol/L Blood Urea Nitrogen 10 7-18 mg/dL Creatinine 1.2 0.5-1.3 mg/dL Glomerular Filtration Rate Calc 74 >90 mL/min Random Glucose 83 70-105 mg/dL Total Calcium 8.3 L 8.5-10.1 mg/dL Total Bilirubin 0.7 0.2-1.0 mg/dL Aspartate Amino Transf (AST/SGOT) 31 10-37 U/L Alanine Aminotransferase (ALT/SGPT) 34 12-78 U/L Alkaline Phosphatase 70 50-136 U/L Total Protein 6.0 6.0-8.3 g/dL Albumin 2.8 L 3.5-5.0 g/dL Whole Blood Glucose 90 70-110 MG/DL Magnesium Level 2.10 1.80-2.40 mg/dL DIAGNOSTICS / RADIOLOGY: [Copy/Paste Echos/Imaging Report here] ASSESSMENT: [] Morbid super obese Abdominal pain Cholelithiasis Biliary colic Rule out acute cholecystitis S/p laparoscopic cholecystectomy Overall doing PLAN: Advance diet Ambulate Okay to [place] home today Follow-up in office in 1-2 weeks JODI JARAMILLO MD Sep 25, 2024 09:21
--- NOTE | 2024-09-25 09:39 | NUR ---
DR ZAPATA HERE AND ASSESSED PATIENT INFORMED OF NOLA DRAIN OUTPUT AT AND THIS AM , MD INFORMED PATIENT WILL SPEND ONE MORE DAY , PATIENT WANTING TO GO HOME MD AGREED LONG PATIENT KEEPS NOLA DRAIN AND TAKES IT EASY UNTIL HIS FOLLOW UP WITH DR ZAPATA.PATIENT VERBALIZED UNDERSTANDING
[2024-09-25 12:00] VITALS: BP 114/61; PULSE 56; RESP 19; TEMP 98.3
--- NOTE | 2024-09-25 12:34 | DS ---
Discharge Summary Hospital Course Summary: This is a 49-year-old male presents in ED with intractable abdominal pain right upper quad ER workup was consistent acute cholecystitis. Was seen by general surgeon order HIDA scan for further evaluation, imaging CT abdomen pelvis with oral and IV contrast for further evaluation. Surgery needed neurology clearance 09/23/[address] abdomen pelvis evidence of acute cholecystitis. No seizures reported overnight review neurology note in detail if patient is seizure free until tomorrow cleared for surgery. If any seizures activity occu rs recommends delay non emergent surgery by one day. Patient is fully awake alert oriented x3. 09/24 patient was pending to undergo cholecystectomy. No acute events reported overnight. 09/25/2024 patient is status post lap sienna postop day one recuperating well tolerating diet no nausea no vomiting no diarrhea. Patient we will follow-up with General surgeon one-week postoperative visit encouraged patient no heavy lifting greater than 10 lb for four weeks keep incisions clean and dry wash with soap and water. Patient will be discharged with drain teaching was done on how to care for drain. Drain will be removed in one-week in clinic written prescription for pain medication bowel regimen and antibiotics [id number] p.o. twice a day for14 days. Tylenol No. 3 one tab every 6 hours as needed. MiraLax 17 g one package daily Procedure(s): [facility] [facility] [id number] [place] [id number] DATE OF SERVICE: PREOPERATIVE DIAGNOSES: POSTOPERATIVE DIAGNOSES: PROCEDURE PERFORMED: Laparoscopic cholecystectomy. SURGEON: Rob Verduzco MD ANESTHESIA: General. ESTIMATED BLOOD LOSS: Minimal. FINDINGS: 1. Moderate right upper quadrant inflammatory adhesions. 2. Enlarged gallbladder. 3. Cholelithiasis. SPECIMEN REMOVED: Gallbladder. COMPLICATIONS: None. DESCRIPTION OF PROCEDURE: The patient was brought into the operating room. After proper identification, the patient was placed on operating table in the supine position. General anesthesia was administered and the patient was endotracheally intubated. Attention was then focus in the area of the abdomen. The same was prepped and draped in the usual sterile fashion. An appropriate timeout was then carried out at this point. Then I proceeded by making a supraumbilical incision. The incision was carried through the skin and subcutaneous tissue until the fascia was identified. The fascia was then carefully incised. Stay stitches were placed on either side of the fascia and the abdominal cavity was entered. The Von port was then introduced. CO2 was insufflated into the abdomen and the laparoscope was introduced. Inspection of the abdomen showed evidence of moderate right upper quadrant inflammatory adhesions and large gallbladder. Three additional ports were then placed, one in the epigastric region 2 in the right upper quadrant. The patient was then placed in reverse Trendelenburg position rotated to the left. A grasper was then used to grasp the fundus of the gallbladder and the same was retracted cephalad and the inflammatory adhesions in the right upper quadrant was then carefully taken down using the Bovie cautery. At the infundibulum same was retracted lateral and the peritoneal covering the triangle of Calot was then carefully opened. The cystic duct and the cystic artery were then identified. Each of these structures were then carefully skeletonized for a distance of about 2 cm. Proximal distal clippings were then applied in each of these structures were then transected between clips. The gallbladder was then removed from the gallbladder fossa using the Bovie cautery, care taken not to injure the liver. The gallbladder was then extracted from the abdomen using an Endopouch. Copious amounts of irrigation was carried out at this point. Hemostasis was noted to be adequate. So, at this point, I proceeded by closing the wound. Ports were withdrawn under vision. CO2 was let out of the abdomen. Supraumbilical fascia was approximated together using 0 Vicryl [id number] stitches and the skin was approximated together using 4-0 Monocryl subcuticular closure. Steri-Strips and sterile dressings were then applied. Instrument and sponge count was taken found to be correct 2. The patient was then woken up, extubated and taken to the recovery room in stable condition. The patient tolerated the procedure well. ROB JARAMILLO MD Sep 24, 2024 11:28 Electronically Signed by: Electronically Co-Signed by: Assessment/Plan: discharged dx's: Acute cholecystitis, POA s/p Lap Sienna with drains Acute abdominal pain, POA resoved Acute on chronic kidney disease, improved Hypoalbuminemia History of seizures Morbid obese, BMI 49.6 PLAN: ADMISSION DATE: 09/22/2024 DISCHARGE DATE: 09/25/2024 DISPOSITION: Home CONDITION: Stable MAILROOM ASSOCIATE(S): General surgeon, neurology FOLLOW UP APPOINTMENT(S): PROCEDURES: Laparoscopic cholecystectomy. IMAGING (S) report attached to summary : HIDA scan, abdomen pelvis CAT scan MICROBIOLOGY: report attached to summary; none ACTIVITY: Ad erick HOME MEDICATIONS reviewed we will remain the same CHANGES ON HOME MEDICATIONS none NEW MEDICATIONS [id number] p.o. twice a day for14 days. Tylenol No. 3 one tab every 6 hours as needed. MiraLax 17 g one package daily TEACHING: No heavy lifting greater than 10 lb for four weeks keep incisions clean and dry wash with soap and water. Emergency instructions: The patient was instructed to present to the nearest Emergency Department or call 911 should their symptoms return or worsen. Discharge Instructions: REASON: ACUTE CHOLECYSTITIS ORDERING PHYSICIAN: ROB JARAMILLO MD PROCEDURE: ABD PEL W - CT ABDOMEN/PELVIS W/CONTRAST EXAM: CT Abdomen and Pelvis with oral and IV contrast CLINICAL HISTORY: Acute cholecystitis. TECHNIQUE: Axial computed tomography images of the abdomen and pelvis with oral and intravenous contrast. CONTRAST: with oral and intravenous contrast. COMPARISON: US abdomen study dated September 22, 2024, and HIDA scan study dated September 23, 2024. FINDINGS: LUNG BASES: The lung bases appear clear. No pleural effusions are seen. LIVER: Unremarkable. GALLBLADDER AND BILE DUCTS: The gallbladder is distended and demonstrates multiple calculi with a possible small impacted calculus at the neck. Mild gallbladder wall thickening and enhancement are seen with pericholecystic fat stranding and edema. No biliary ductal dilatation is evident. No radiodense common bile duct calculus. PANCREAS: Unremarkable. SPLEEN: Unremarkable. ADRENAL GLANDS: Unremarkable. KIDNEYS, URETERS, AND BLADDER: The kidneys appear within normal limits. There is no hydronephrosis or hydroureter. No urinary calculi are seen. The urinary bladder is incompletely distended at the time of examination, limiting the evaluation. STOMACH AND BOWEL: Unremarkable appearance of the stomach and bowel. No evidence of bowel obstruction. No evidence suggesting enteritis or colitis. There are multiple colonic diverticula without evidence of diverticulitis. APPENDIX: The appendix is not visualized. PERITONEUM: There is no free fluid, free air or abscess. LYMPH NODES: A few small periportal lymph nodes are seen. REPRODUCTIVE: Unremarkable as visualized. VASCULATURE: No evidence of abdominal aortic aneurysm. BONES: No aggressive-appearing osseous lesion. No acute osseous pathology is evident. Osseous degenerative changes are noted. A small umbilical hernia is seen containing fat without incarceration. IMPRESSION: Findings suggestive of acute calculus cholecystitis. No evidence of dilated bile ducts or common bile duct calculus. Other findings as described above. REASON: ACUTE CHOLECYSTITIS ORDERING PHYSICIAN: ROB JARAMILLO MD PROCEDURE: HIDAWO - NM HIDA WO EF/CCK Examination Hepatobiliary study History RUQ Pain Technique [id number] mebrofenin were administered intravenously followed by acquisition of planar images of the abdomen. Findings Following administration of radiotracer, there is prompt appearance of normal hepatic contours, followed by appearance of activity in unremarkable appearing bile ducts. There is nonvisualization of the gallbladder reflecting acute cholecystitis. IMPRESSION: There is nonvisualization of the gallbladder reflecting acute cholecystitis. Home Medications: Reported Medications Zonisamide (Zonisamide) 25 Mg Capsule, 1 CAP PO BID for 30 Days, #60 CAP 0 Refills 8/5/25 Levetiracetam (Levetiracetam) 750 Mg Tab.er.24h, 2 TAB PO HS for 30 Days, #60 TAB 0 Refills 8/5/25 Levetiracetam (Levetiracetam) 750 Mg Tab.er.24h, 1 TAB PO DAILY for 30 Days, #60 TAB 0 Refills 8/5/25 Divalproex Sodium (Divalproex Sodium ER) 500 Mg Tab.er.24h, 2 TAB PO BID for 30 Days, #60 TAB 0 Refills 8/5/25 Continued Medications: Divalproex Sodium (Divalproex Sodium ER) 500 Mg Tab.er.24h 2 TAB PO BID for 30 Days, #60 TAB 0 Refills Levetiracetam (Levetiracetam) 750 Mg Tab.er.24h 1 TAB PO DAILY for 30 Days, #60 TAB 0 Refills Levetiracetam (Levetiracetam) 750 Mg Tab.er.24h 2 TAB PO HS for 30 Days, #60 TAB 0 Refills Zonisamide (Zonisamide) 25 Mg Capsule 1 CAP PO BID for 30 Days, #60 CAP 0 Refills Time spent arranging discharge: 31-60 minutes ATTESTATION BY PHYSICIAN I have seen and examined the patient. I reviewed the documentation, medical decision making, and treatment plan as noted by the mid-level provider above. I agree with the findings and plan of care. Abida Ortega MD, ELIZABETH NP Sep 25, 2024 12:34
--- NOTE | 2024-09-25 16:05 | NUR ---
DRESSING CHANGED TO ABDOMEN ALL INCISIONS INTACT WITH [facility] INTACT MINIMAL DRY DRAINAGE NOTED. AT BEDSIDE STATES IS A HEALTHCARE PROFESSIONAL AND WILL BE DOING DAILY DRESSING CHANGES . AND WILL FOLLOW UP IN ONE WEEK AT [facility] OFFICE.DISCHARGED HOME VIA W/C TO [employer]
== END 2024-09-25 16:05 | disposition home or self-care (01) | DRG 418 ==
LOC: EDH 22:26 → EDHIP 09-22 01:25 → 3AH 09-22 03:48 → EDHIP 09-22 03:52 → 3AH 09-22 07:58
PROVIDERS: ADMIT Internal Medicine; ATTEND Internal Medicine
PROC: 0FT44ZZ Resection of Gallbladder, Percutaneous Endoscopic Approach (ICD-10-PCS; principal; 2024-09-24 10:30)
DX: K80.62 Calculus of gallbladder and bile duct with acute cholecystitis without obstruction (principal); N17.9 Acute kidney failure, unspecified; Z68.42 Body mass index [BMI] 45.0-49.9, adult; K82.8 Other specified diseases of gallbladder; E88.09 Other disorders of plasma-protein metabolism, not elsewhere classified; E66.01 Morbid (severe) obesity due to excess calories; I12.9 Hypertensive chronic kidney disease with stage 1 through stage 4 chronic kidney disease, or unspecified chronic kidney disease; G40.909 Epilepsy, unspecified, not intractable, without status epilepticus; N18.9 Chronic kidney disease, unspecified; K76.0 Fatty (change of) liver, not elsewhere classified; K59.00 Constipation, unspecified; Z79.899 Other long term (current) drug therapy
CPT/HCPCS: 36415; 71045; 74177; 76705; 78226; 80048; 80053; 81001; 82150; 82550; 82948; 83690; 83735; 84100; 85025; 93005; 99285; A4450; A9537; G0378; J0330; J1100; J1171; J1885; J1953; J2003; J2250; J2270; J2405; J2543; J2704; J2710; J3010; J3475; J3490; J7030; J7120; Q9963; Q9967; A4216; A4222; A4223; A4649; A4930; C1769; J0665